=== PATIENT | male | born 1930 | race Caucasian/White ===

== ENCOUNTER 2016-11-21 11:33 | Inpatient (IN) | payer MEDICARE, OTHER ==
[~2016-11-21] VITALS: Ht 177.8 cm; Wt 73.5 kg
--- NOTE | 2016-11-21 11:56 | RAD ---
CT of the head without contrast, 11/21/2016: History: Left-sided weakness, altered mental status There is moderate cerebral atrophy. There are mild patchy lucencies in the deep white matter bilaterally compatible with chronic ischemic change. The ventricles are mildly enlarged on a compensatory basis. There is no shift of the midline structures. There is no evidence of acute intracranial hemorrhage or mass effect. IMPRESSION: 1. Cerebral atrophy. 2. Mild chronic ischemic change in the deep white matter bilaterally. 3. No acute intracranial abnormality is detected. Note: The findings were called to personnel in the [facility] ER at 11:50 AM on 11/21/2016. PQRS Compliance Statement: One or more of the following individualized dose reduction techniques were utilized for this examination: 1. Automated exposure control 2. Adjustment of the mA and/or kV according to patient size 3. Use of iterative reconstruction technique
[2016-11-21 12:45] LABS: BASO # 0.1 x10^3/uL (0.0-0.2); BASO % 1 % (0-3); EOS % 2 % (0-3); HEMATOCRIT 43.4 % (39.0-53.0); HEMOGLOBIN 14.3 g/dL (13.0-17.5); LYMPH # 2.6 x10^3/uL (1.0-4.8); LYMPH % 30 % (24-48); MEAN CORPUSCULAR HEMOGLOBIN 30 pg (25-35); MEAN CORPUSCULAR HGB CONC 33 g/dL (31-37); MEAN CORPUSCULAR VOLUME 89 fL (79-100); MONO % 9 % (0-9); NEUT % 58 % (31-73); PLATELET COUNT 577 x10^3/uL (140-400); RED BLOOD COUNT 4.86 x10^6/uL (4.30-5.70); RED CELL DISTRIBUTION WIDTH 14.6 % (11.5-14.5); WHITE BLOOD COUNT 8.5 x10^3/uL (4.0-11.0)
[2016-11-21] MEDS ORDERED: ASPIRIN ENTERIC COATED 325 MG TABLET.DR. PO ONE (12:45)
--- NOTE | 2016-11-21 12:53 | PHYS DOC ---
Past Medical History Past Medical History: Diabetes-Type II Alcohol Use: None Drug Use: None Adult General Chief Complaint Chief Complaint: NEURO SYMPTOMS/DEFICITS HPI HPI 86-year-old male presenting to the emergency department with worsening decline of his mental status over the past week. His symptoms include generalized weakness slurring of speech mental status decline. The halfway reports his last known normal was on Monday. This morning he did get worse and began developing worsening slurred speech at which point paramedics were called. Location brain. Duration intermittent. No alleviating factors present. Review of systems is negative for chest pain shortness of breath abdominal pain nausea vomiting fevers or chills. All other review of systems is negative unless otherwise noted in history of present illness. Review of Systems Review of Systems SEE ABOVE. Current Medications Current Medications Current Medications Medications (Trade) Dose Ordered Sig/Alka Start Time Stop Time Status Last Admin Dose Admin Aspirin (Ecotrin) 325 mg 1X ONCE 11/21/16 12:45 11/21/16 12:46 DC 11/21/16 12:35 325 MG Morphine Sulfate 2 mg PRN Q2HR PRN 11/21/16 13:15 11/22/16 13:14 Ondansetron HCl (Zofran) 4 mg PRN Q8HRS PRN 11/21/16 13:15 11/22/16 13:14 Allergies Allergies Allergies Coded Allergies Type Severity Reaction Last Updated Verified carbidopa Allergy Unknown 11/21/16 Yes codeine Allergy Unknown 11/21/16 Yes levodopa Allergy Unknown 11/21/16 Yes lisinopril Allergy Unknown 11/21/16 Yes Physical Exam Physical Exam Constitutional: Well developed, well nourished, no acute distress, non-toxic appearance. HENT: Normocephalic, atraumatic, bilateral external ears normal, oropharynx moist, no oral exudates, nose normal. [] Eyes: PERRLA, EOMI, conjunctiva normal, no discharge. [] Neck: Normal range of motion, no tenderness, supple, no stridor. Cardiovascular:Heart rate regular rhythm, no murmur [] Lungs & Thorax: Bilateral breath sounds clear to auscultation Abdomen: Bowel sounds normal, soft, no tenderness, no masses, no pulsatile masses. [] Skin: Warm, dry, no erythema, no rash. Back: No tenderness, no CVA tenderness. [] Extremities: No tenderness, no cyanosis, no clubbing, ROM intact, no edema. [] Neurologic: Mental status: Awake, opens eyes spontaneously, oriented to person and alert Cranial nerves: Extraocular movements intact, eyebrows diana bilaterally smile symmetric, uvula elevation, shoulder shrug intact, tongue protrusion normal DTRs: 2+ Sensation: equal and normal in all extremities Strength: 4 out of 5 strength in the right upper and lower extremity with drift. 5 out of 5 strength in the left upper extremity and lower extremity. Psychologic: Affect normal, judgement normal, mood normal. Current Patient Data Vital Signs Vital Signs Date Time Temp Pulse Resp B/P Pulse Ox O2 Delivery O2 Flow Rate FiO2 11/21/16 11:40 97.4 83 14 148/104 97 Room Air 97.4 Lab Values Laboratory Tests Test 11/21/16 12:17 11/21/16 12:30 11/21/16 12:55 Glucose (Fingerstick) 166mg/dL (70-99) H White Blood Count 8.5x10^3/uL (4.0-11.0) Red Blood Count 4.86x10^6/uL (4.30-5.70) Hemoglobin 14.3g/dL (13.0-17.5) Hematocrit 43.4% (39.0-53.0) Mean Corpuscular Volume 89fL (79-100) Mean Corpuscular Hemoglobin 30pg (25-35) Mean Corpuscular Hemoglobin Concent 33g/dL (31-37) Red Cell Distribution Width 14.6% (11.5-14.5) H Platelet Count 577x10^3/uL (140-400) H Neutrophils (%) (Auto) 58% (31-73) Lymphocytes (%) (Auto) 30% (24-48) Monocytes (%) (Auto) 9% (0-9) Eosinophils (%) (Auto) 2% (0-3) Basophils (%) (Auto) 1% (0-3) Neutrophils # (Auto) 4.9x10^3uL (1.8-7.7) Lymphocytes # (Auto) 2.6x10^3/uL (1.0-4.8) Monocytes # (Auto) 0.8x10^3/uL (0.0-1.1) Eosinophils # (Auto) 0.1x10^3/uL (0.0-0.7) Basophils # (Auto) 0.1x10^3/uL (0.0-0.2) Prothrombin Time 24.3SEC (11.7-14.0) H Prothrombin Time INR 2.3 (0.8-1.1) H PTT 34SEC (24-38) Sodium Level 143mmol/L (136-145) Potassium Level 4.5mmol/L (3.5-5.1) Chloride Level 105mmol/L (98-107) Carbon Dioxide Level 30mmol/L (21-32) Anion Gap 8 (6-14) Blood Urea Nitrogen 19mg/dL (8-26) Creatinine 0.9mg/dL (0.7-1.3) Estimated GFR (Cockcroft-Gault) 80.4 Glucose Level 142mg/dL (70-99) H Calcium Level 11.0mg/dL (8.5-10.1) H Total Bilirubin 0.4mg/dL (0.2-1.0) Direct Bilirubin 0.2mg/dL (0.0-0.2) Aspartate Amino Transferase (AST) 18U/L (15-37) Alanine Aminotransferase (ALT) 21U/L (16-63) Alkaline Phosphatase 83U/L (46-116) Troponin I Quantitative < 0.017ng/mL (0.000-0.055) Total Protein 7.0g/dL (6.4-8.2) Albumin 3.5g/dL (3.4-5.0) Urine Collection Type Unknown Urine Color Yellow Urine Clarity Clear Urine pH 5.5 Urine Specific [place] 1.025 Urine Protein Negativemg/dL (NEG-TRACE) Urine Glucose (UA) Negativemg/dL (NEG) Urine Ketones (Stick) 15mg/dL (NEG) Urine Blood Negative (NEG) Urine Nitrite Negative (NEG) Urine Bilirubin Small (NEG) Urine Urobilinogen Dipstick 1.0mg/dL (0.2 mg/dL) Urine Leukocyte Esterase Negative (NEG) Urine RBC Occ/HPF (0-2) Urine WBC Occ/HPF (0-4) Urine Bacteria 0/HPF (0-FEW) Urine Hyaline Casts Few/HPF Urine Mucus Marked/LPF Urine Opiates Screen Neg (NEG) Urine Methadone Screen Neg (NEG) Urine Barbiturates Neg (NEG) Urine Phencyclidine Screen Neg (NEG) Urine Amphetamine/Methamphetamine Neg (NEG) Urine Benzodiazepines Screen Neg (NEG) Urine Cocaine Screen Neg (NEG) Urine Cannabinoids Screen Neg (NEG) Urine Ethyl Alcohol Neg (NEG) Laboratory Tests 11/21/16 12:30 Laboratory Tests 11/21/16 12:30 EKG EKG [] Radiology/Procedures Radiology/Procedures [] Course & Med Decision Making Course & Med Decision Making Pertinent Labs and Imaging studies reviewed. (See chart for details) [] 86-year-old male presenting to the emergency department with strokelike symptoms. His last known normal was on Monday and he has been progressively declining with slurred speech and worsening right-sided weakness. Patient was outside of the TPA window. In addition to this the patient's INR is too high. Given the patient's slurred speech and weakness of the right upper and lower extremity the patient was admitted for neurology consultation and MRI. Dragon Disclaimer Dragon Disclaimer This electronic medical record was generated, in whole or in part, using a voice recognition dictation system. Departure Departure Impression: Primary Impression: Slurred speech Additional Impression: Right sided weakness Disposition: ADMITTED INPATIENT Admitting Physician: Yanna Diez Condition: STABLE Referrals: MIRIAM BRAUN MD (PCP) Problem Qualifiers DIETER MARROQUIN MD Nov 21, 2016 12:53
[2016-11-21 12:54] LABS: INR 2.3 (0.8-1.1); PROTHROMBIN TIME PATIENT 24.3 SEC (11.7-14.0)
[2016-11-21 12:56] LABS: CREATININE 0.9 mg/dL (0.7-1.3); GFR 80.4; POTASSIUM 4.5 mmol/L (3.5-5.1)
[2016-11-21 13:02] LABS: ALBUMIN 3.5 g/dL (3.4-5.0); DIRECT BILIRUBIN 0.2 mg/dL (0.0-0.2); TOTAL BILIRUBIN 0.4 mg/dL (0.2-1.0)
[2016-11-21 13:06] LABS: BILIRUBIN,URINE SMALL (NEG); GLUCOSE,URINE NEGATIVE (NEG); NITRITE,URINE NEGATIVE (NEG); PH,URINE 5.5; PROTEIN,URINE NEGATIVE (NEG-TRACE)
[2016-11-21 13:11] LABS: BARBITURATES NEG (NEG); BENZODIAZEPINES NEG (NEG); CANNABINOIDS NEG (NEG); COCAINE NEG (NEG); METHADONE NEG (NEG); OPIATES NEG (NEG); PHENCYCLIDINE NEG (NEG)
[2016-11-21 13:13] LABS: ETHANOL, URINE NEG (NEG)
[2016-11-21] MEDS ORDERED: MORPHINE SULFATE 2 MG/ML DISP.SYRIN. IV PRN (13:15)
[2016-11-21] MEDS ORDERED: ONDANSETRON PF 4 MG/2 ML VIAL. IV PRN (13:15)
[2016-11-21 13:17] LABS: BACTERIA,URINE 0 /HPF (0-FEW); RBC,URINE OCC /HPF (0-2); WBC,URINE OCC /HPF (0-4)
--- NOTE | 2016-11-21 14:01 | ACF ---
Admission Forms Criteria NEUROLOGY GRG Clinical Indications for Admission to Inpatient Care (Place ' X' for any and all applicable criteria): Hospital admission is needed for appropriate care of the patient because of 1 or more of the following: [ ]I. Encephalitis [ ]II. Severe [employer] infections indicated by 1 or more of the following(1)(2)(3) : [ ]a) Intracranial abscess [ ]b) Spinal abscess or myelitis [ ]c) Tuberculous or other nonbacterial, nonviral [employer] infection(8) [ ]III. Vasculitis and 1 or more of the following(14)(15): []a) Altered mental status that is severe or persistent or other acute neurologic change []b) Psychosis []c) Seizure [ ]IV. Status epilepticus or repetitive seizures not controlled with emergent treatment [A] (7)(8) [ ]V. Altered mental status that is severe or persistent [ ]. Transient alteration in consciousness with high-risk etiology; examples include (12)(13): [ ]a) Cardiovascular source [ ]b) Cataplexy [ ]VII. Cerebral aneurysm requiring ANY ONE of the following(14): [ ]a) IV antihypertensives or vasoactive agents [ ]b) Sedation and analgesia for suspected leak [ ]c) Need for external ventricular drainage and cerebral perfusion pressure monitoring [ ]d) Emergent evaluation to determine need for surgical clipping or endovascular coiling by interventional radiology. If surgery is required ( Also use Craniotomy, Supratentorial, for Surgery of Bleeding Intracranial Aneurysm (for bleeding aneurysm) or Craniotomy, Supratentorial (for nonbleeding aneurysm) as appropriate. [X]VIII. New-onset severe neurologic symptom requiring inpatient care indicated by ANY ONE of the following: [ ]a) Aphasia(15) [ ]b) Weakness (grade 3 or less) [ ]c) Paralysis (eg, hemiplegia) [ ]d) Spasticity(16) [ ]e) Dystonia [ ]e) Ataxia(17) [ ]f) Amnesia(18) [ ]g) Involuntary movements(19) [ ]h) Vertigo [ ] Visual loss [X]i) Other severe neurologic finding (eg, papilledema, mass effect on imaging, myoclonus not treatable at alternative level of care (eg, observation care) [ ]IX. Guillain-[place] syndrome(20) [ ]X. Myasthenia gravis crisis or inpatient monitoring need as indicated by 1 or more of the following(21): [ ]a) Intensive treatment (eg, course of plasmapheresis) with inadequate outpatient situation to monitor patients status [ ]b) Inadequate airway protection [ ]c) Respiratory insufficiency requiring intubation or inpatient. monitoring [ ]d) Progressive dysphagia with failure to thrive [ ]XI. Multiple sclerosis or other acute demyelinating disease requiring inpatient care as indicated by 1 or more of the following (22)(23): [ ]a) Acute severe deterioration requiring inpatient treatment (eg, IV steroids, plasmapheresis, close observation) [ ]b) Acute complication requiring inpatient care (eg, sepsis, severe decubitus, aspiration) [ ]XII.Parkinson disease requiring inpatient care (Also use Optimal Recovery Care Criteria or General Recovery Criteria as appropriate) indicated by 1 or more of the following(25): [ ]a) Infection (eg, aspiration pneumonia) not treatable at alternative level of care [ ]b Dehydration that is severe or persistent [ ]c) Life-threatening agitation or psychotic behavior not treatable on emergency, observation care, or alternative level (eg, residential) basis [ ]d) Severe medication withdrawal effects (eg, freezing, neuroleptic malignant syndrome) not responsive to emergency and observation care treatment ( as appropriate) [ ]e) Other severe manifestation not treatable at alternative level of care [ ]XII. Amyotrophic lateral sclerosis with inpatient care needs as indicated by ANY ONE of the following(26): [ ]a) Acute complications (eg, aspiration pneumonia, sepsis ) requiring inpatient care ( see other optimal Recovery Guideline as appropriate) [ ]b) Dehydration that is severe persistent AND artificial support desired [ ]c) Inadequate airway protection AND artificial support desired [ ]d) Severe ventilatory insufficiency AND artificial support desired [ ]XIII. Myasthenia gravis crisis or inpatient monitoring need as indicated by 1 or more of the following(21): [] a) Inadequate airway protection []b) Respiratory insufficiency requiring intubation or inpatient monitoring []c) Progressive dysphagia with failure to thrive []d) Intensive treatment (e.g., course of plasmapheresis) with inadequate outpatient situation to monitor patients status [ ]XIV. Multiple sclerosis or other acute demyelinating disease requiring inpatient care indicated by 1 or more of the following[C](36)(43)(44)(45)(46): []a) Acute severe deterioration requiring inpatient treatment (eg, IV steroids, plasmapheresis, close observation) []b) Acute complication requiring inpatient care (eg, sepsis, severe decubitus, aspiration) [ ]XV. Intracranial hypertension (e.g., pseudotumor cerebri) requiring inpatient care (e.g., acute visual loss, inadequate oral intake) (47)(48)(49) [ ]XVI. Parkinson disease requiring inpatient care (Also use Optimal Recovery Care Criteria or General Recovery Criteria as appropriate) indicated by 1 or more of the following(25): [] a) Infection (e.g., aspiration pneumonia) not treatable at alternative level of care []b) Volume depletion not responsive to emergency and observation care treatment (as appropriate) []c) Life-threatening agitation or psychotic behavior not treatable on emergency, observation care, or alternative level (e.g., residential) basis []d) Severe medication withdrawal effects (e.g., freezing, neuroleptic malignant syndrome) not responsive to emergency and observation care treatment (as appropriate) []e) Other severe manifestation not treatable at alternative level of care [ ]XVII. Amyotrophic lateral sclerosis with inpatient care needs as indicated by1 or more of the following(42): []a) Acute complications (eg, aspiration pneumonia, sepsis) requiring inpatient care (see other Optimal Recovery Guideline or General Recovery Guideline as appropriate) []b) Dehydration that is severe or persistent AND artificial support desired []c) Inadequate airway protection AND artificial support desired []d) Severe ventilatory insufficiency AND artificial support desired [ ]XVIII. Severe myopathy, neuropathy, or other neuromuscular disease indicated by 1 or more of the following(42)(52)(53)(54): []a ) New-onset severe diffuse weakness (eg, strength 3/5 or less) []b) Severe dysphagia []c) Dyspnea at rest or with minimal exertion (new) []d) Inadequate airway protection []e) Inadequate ventilation indicated by 1 or more of the following : i) Partial pressure of carbon dioxide greater than 44 mm Hg ( 5.9 kPa) (new) ii) Reduced peak expiratory flow rate (new) iii) Vital capacity less than 50% of predicted (less than 15 mL/kg) iv) Peak inspiratory force less negative than -30 cm H2O (- 2942 Pa) [ ]XVII.Complications of congenital or degenerative disease (eg, infection, seizures, dehydration, injury) not responsive to emergency and observation care treatment (as appropriate ) [C](16)(29)(30) [ ]XVIII.Suspected or confirmed nerve or muscle toxic injury, including ANY ONE of the following: [ ]a) Rhabdomyolysis(31) i) Acute renal failure ii) Dehydration that is severe or persistent iii) Altered mental status that is severe or persistent iv) Electrolyte abnormality that remains after emergency or observation level care ( as appropriate) [ ]b) Botulism(32) [ ]c) Other severe toxin-induced sign or symptom [ ]XIX. Neurologic trauma requiring inpatient treatment (medical) indicated by ANY ONE of the following(33)(34): [ ]a) Vital signs or neurologic signs more frequently than every 4 hours [ ]b) Hyperosmolar therapy [ ]c) Respiratory monitoring [ ]d) Intracranial pressure monitoring and treatment [ ]e) Stabilization and immobilization device placement (eg, braces, body jacket) [ ]f) Intubation & mechanical ventilation for airway protection or therapeutic hyperventilation [ ]g) Other treatment or monitoring needed that requires inpatient level of care [ ]XX.Complications of neurologic devices (eg, ventricular shunt, neurostimulator) requiring 1 or more of the following(35)(36): [ ]a) IV antibiotics with monitoring while awaiting culture results [ ]b) Monitoring for hydrocephalus [ ]XXI. Neurology condition symptom, or finding for which emergency and observation care have failed or are not considered appropriate. See General Criteria: Observation Care ISC, General Admission Criteria GRG, or Pediatric General Admission Criteria GRG guideline as appropriate. The original [facility] [employer] content created by [facility] [employer] has been revised. The portions of the content which have been revised are identified through the use of italic text or in bold, and [facility] has neither reviewed nor approved the modified material. All other unmodified content is copyright [facility] Please see references footnoted in the original [facility] edition 2016 Admission Criteria Met?: Yes SUZANNE RAMÍREZ Nov 21, 2016 14:01
--- NOTE | 2016-11-21 15:03 | PDOC2 ---
NEUROLOGY CONSULT Date of Admission Date of Admission DATE: 11/21/16 TIME: 15:03 History of Present Illness History of Present Illness The patient is an 86-year-old right-handed male [facility] with 1 week of confusion and increased weakness. The last known normal was 3 days ago. Therefore he is not a candidate for tissue plasminogen activator. A power of traffic law attorney was here earlier, but not currently available. He denies any history of stroke, seizure, or head injury. I reviewed [place]'s records. He was admitted first on November 02 for weakness and falls. Dr. Huerta saw him. He recorded that the patient was also at [facility] in the middle of October with weakness and had extensive x-rays including a head CT. Head CT on 11/02 showed an old right frontal meningioma. Then he was admitted at [facility] last week with weakness and falls. Head and cervical spine CT showed no significant abnormality as reviewed below. Dr. Huerta also saw him then. There was comment one possibly obtaining an EMG but results are not in the chart. Past Medical History Cardiovascular: AFIB, HTN, Hyperlipidemia Pulmonary: COPD, Pulmonary embolus (DVT) Musculoskeletal: low back pain Endocrine: Diabetes Past Surgical History Past Surgical History: Pacemaker, Cataract Removal, Hernia Repair, Tonsillectomy, Other (cervical, lumbar 2, cardiac ablation) Family History Family History: CAD Social History Social History Currently in a [facility], had been with a significant other in his own home, non-smoker, nondrinker Current Medications Current Medications Current Medications Aspirin (Ecotrin) 325 mg 1X ONCE PO Last administered on 11/21/16t 12:35; Start 11/21/16 at 12:45; Stop 11/21/16 at 12:46; Status DC Ondansetron HCl (Zofran) 4 mg PRN Q8HRS PRN IV NAUSEA/VOMITING; Start 11/21/16 at 13:15; Stop 11/22/16 at 13:14 Morphine Sulfate 2 mg PRN Q2HR PRN IV PAIN; Start 11/21/16 at 13:15; Stop 11/22 at 13:14 Allergies Allergies: Coded Allergies: carbidopa (Verified Allergy, Unknown, 11/21/16) codeine (Verified Allergy, Unknown, 11/21/16) levodopa (Verified Allergy, Unknown, 11/21/16) lisinopril (Verified Allergy, Unknown, 11/21/16) ROS Review of System Patient denies fevers, chills, weight loss, dyspnea, angina, abdominal pain, change in bowels, or dysuria. 14 point review of systems is negative. Physical Exam Physical Examination PHYSICAL EXAMINATION: Vital signs: see above. General appearance is normal and in no acute distress. HEENT: Normocephalic and nontraumatic. Eyes, nose, ears, and throat are unremarkable. Neck is supple. No lymphadenopathy. No bruits are heard over the carotid artery. No crepitus. NEUROLOGICAL EXAMINATION: Mental Status Examination: Alert. Oriented to person, does not know date or location. Answers questions and follows commends. Pupils are equal round and reactive to light and accommodation. Extraocular movements are intact. Visual field exam shows no defect on the direct confrontation. No motor or sensory deficits on the facial exam. Uvula in the midline and the soft palate elevated symmetrically. No deviation of the tongue to any direction. Gross hearing is normal. Shoulder shrug normal. Muscle tone is normal. Muscle strength is 3/5 on right, 4/5 on left. Deep tendon reflexes are 1+ all around. Plantar reflex is with flexion response bilaterally. [id number] test performance is accurate. Alternative movements are accurate. Gait not tested. Sensory exam shows no deficits. No cerebellar signs are elicited. Vitals VITALS Vital Signs Date Time Temp Pulse Resp B/P Pulse Ox O2 Delivery O2 Flow Rate FiO2 11/21/16 11:40 97.4 83 14 148/104 97 Room Air 97.4 Labs Labs Laboratory Tests Test 11/21/16 12:17 11/21/16 12:30 11/21/16 12:55 Glucose (Fingerstick) 166mg/dL (70-99) White Blood Count 8.5x10^3/uL (4.0-11.0) Red Blood Count 4.86x10^6/uL (4.30-5.70) Hemoglobin 14.3g/dL (13.0-17.5) Hematocrit 43.4% (39.0-53.0) Mean Corpuscular Volume 89fL (79-100) Mean Corpuscular Hemoglobin 30pg (25-35) Mean Corpuscular Hemoglobin Concent 33g/dL (31-37) Red Cell Distribution Width 14.6% (11.5-14.5) Platelet Count 577x10^3/uL (140-400) Neutrophils (%) (Auto) 58% (31-73) Lymphocytes (%) (Auto) 30% (24-48) Monocytes (%) (Auto) 9% (0-9) Eosinophils (%) (Auto) 2% (0-3) Basophils (%) (Auto) 1% (0-3) Neutrophils # (Auto) 4.9x10^3uL (1.8-7.7) Lymphocytes # (Auto) 2.6x10^3/uL (1.0-4.8) Monocytes # (Auto) 0.8x10^3/uL (0.0-1.1) Eosinophils # (Auto) 0.1x10^3/uL (0.0-0.7) Basophils # (Auto) 0.1x10^3/uL (0.0-0.2) Prothrombin Time 24.3SEC (11.7-14.0) Prothromb Time International Ratio 2.3 (0.8-1.1) Activated Partial Thromboplast Time 34SEC (24-38) Sodium Level 143mmol/L (136-145) Potassium Level 4.5mmol/L (3.5-5.1) Chloride Level 105mmol/L (98-107) Carbon Dioxide Level 30mmol/L (21-32) Anion Gap 8 (6-14) Blood Urea Nitrogen 19mg/dL (8-26) Creatinine 0.9mg/dL (0.7-1.3) Estimated GFR (Cockcroft-Gault) 80.4 Glucose Level 142mg/dL (70-99) Calcium Level 11.0mg/dL (8.5-10.1) Total Bilirubin 0.4mg/dL (0.2-1.0) Direct Bilirubin 0.2mg/dL (0.0-0.2) Aspartate Amino Transf (AST/SGOT) 18U/L (15-37) Alanine Aminotransferase (ALT/SGPT) 21U/L (16-63) Alkaline Phosphatase 83U/L (46-116) Troponin I Quantitative < 0.017ng/mL (0.000-0.055) Total Protein 7.0g/dL (6.4-8.2) Albumin 3.5g/dL (3.4-5.0) Urine Collection Type Unknown Urine Color Yellow Urine Clarity Clear Urine pH 5.5 Urine Specific [place] 1.025 Urine Protein Negativemg/dL (NEG-TRACE) Urine Glucose (UA) Negativemg/dL (NEG) Urine Ketones (Stick) 15mg/dL (NEG) Urine Blood Negative (NEG) Urine Nitrite Negative (NEG) Urine Bilirubin Small (NEG) Urine Urobilinogen Dipstick 1.0mg/dL (0.2 mg/dL) Urine Leukocyte Esterase Negative (NEG) Urine RBC Occ/HPF (0-2) Urine WBC Occ/HPF (0-4) Urine Bacteria 0/HPF (0-FEW) Urine Hyaline Casts Few/HPF Urine Mucus Marked/LPF Urine Opiates Screen Neg (NEG) Urine Methadone Screen Neg (NEG) Urine Barbiturates Neg (NEG) Urine Phencyclidine Screen Neg (NEG) Urine Amphetamine/Methamphetamine Neg (NEG) Urine Benzodiazepines Screen Neg (NEG) Urine Cocaine Screen Neg (NEG) Urine Cannabinoids Screen Neg (NEG) Urine Ethyl Alcohol Neg (NEG) Laboratory Tests Test 11/21/16 12:17 11/21/16 12:30 11/21/16 12:55 Glucose (Fingerstick) 166mg/dL (70-99) White Blood Count 8.5x10^3/uL (4.0-11.0) Red Blood Count 4.86x10^6/uL (4.30-5.70) Hemoglobin 14.3g/dL (13.0-17.5) Hematocrit 43.4% (39.0-53.0) Mean Corpuscular Volume 89fL (79-100) Mean Corpuscular Hemoglobin 30pg (25-35) Mean Corpuscular Hemoglobin Concent 33g/dL (31-37) Red Cell Distribution Width 14.6% (11.5-14.5) Platelet Count 577x10^3/uL (140-400) Neutrophils (%) (Auto) 58% (31-73) Lymphocytes (%) (Auto) 30% (24-48) Monocytes (%) (Auto) 9% (0-9) Eosinophils (%) (Auto) 2% (0-3) Basophils (%) (Auto) 1% (0-3) Neutrophils # (Auto) 4.9x10^3uL (1.8-7.7) Lymphocytes # (Auto) 2.6x10^3/uL (1.0-4.8) Monocytes # (Auto) 0.8x10^3/uL (0.0-1.1) Eosinophils # (Auto) 0.1x10^3/uL (0.0-0.7) Basophils # (Auto) 0.1x10^3/uL (0.0-0.2) Prothrombin Time 24.3SEC (11.7-14.0) Prothromb Time International Ratio 2.3 (0.8-1.1) Activated Partial Thromboplast Time 34SEC (24-38) Sodium Level 143mmol/L (136-145) Potassium Level 4.5mmol/L (3.5-5.1) Chloride Level 105mmol/L (98-107) Carbon Dioxide Level 30mmol/L (21-32) Anion Gap 8 (6-14) Blood Urea Nitrogen 19mg/dL (8-26) Creatinine 0.9mg/dL (0.7-1.3) Estimated GFR (Cockcroft-Gault) 80.4 Glucose Level 142mg/dL (70-99) Calcium Level 11.0mg/dL (8.5-10.1) Total Bilirubin 0.4mg/dL (0.2-1.0) Direct Bilirubin 0.2mg/dL (0.0-0.2) Aspartate Amino Transf (AST/SGOT) 18U/L (15-37) Alanine Aminotransferase (ALT/SGPT) 21U/L (16-63) Alkaline Phosphatase 83U/L (46-116) Troponin I Quantitative < 0.017ng/mL (0.000-0.055) Total Protein 7.0g/dL (6.4-8.2) Albumin 3.5g/dL (3.4-5.0) Urine Collection Type Unknown Urine Color Yellow Urine Clarity Clear Urine pH 5.5 Urine Specific [place] 1.025 Urine Protein Negativemg/dL (NEG-TRACE) Urine Glucose (UA) Negativemg/dL (NEG) Urine Ketones (Stick) 15mg/dL (NEG) Urine Blood Negative (NEG) Urine Nitrite Negative (NEG) Urine Bilirubin Small (NEG) Urine Urobilinogen Dipstick 1.0mg/dL (0.2 mg/dL) Urine Leukocyte Esterase Negative (NEG) Urine RBC Occ/HPF (0-2) Urine WBC Occ/HPF (0-4) Urine Bacteria 0/HPF (0-FEW) Urine Hyaline Casts Few/HPF Urine Mucus Marked/LPF Urine Opiates Screen Neg (NEG) Urine Methadone Screen Neg (NEG) Urine Barbiturates Neg (NEG) Urine Phencyclidine Screen Neg (NEG) Urine Amphetamine/Methamphetamine Neg (NEG) Urine Benzodiazepines Screen Neg (NEG) Urine Cocaine Screen Neg (NEG) Urine Cannabinoids Screen Neg (NEG) Urine Ethyl Alcohol Neg (NEG) Images Images CT head and cervical spine without contrast. 11/15 HISTORY Fall with head and neck pain. COMPARISON CT head and cervical spine without contrast November 08, 2011. TECHNIQUE Helical CT imaging of the brain and of the cervical spine is performed without IV contrast. PQRS: One or more the following individualized dose reduction techniques were utilized for the study: 1. Automated exposure control. 2. Adjustment of the mA and/or kV according to patient size. 3. Use of iterative reconstruction technique. FINDINGS No acute calvarial fracture. Visualized globes and orbits are intact. Paranasal sinuses and mastoid air cells are clear. No midline shift or mass effect. No extra-axial fluid collection or intraparenchymal hemorrhage. Hdez-white matter differentiation is preserved. Basilar cisterns are patent. The ventricles and sulci are prominent, consistent with age-related cerebral atrophy. There is periventricular white matter hypoattenuation, nonspecific but commonly due to chronic small vessel ischemic disease in a patient of this age. No acute fracture or subluxation of the cervical spine. Hypertrophic facets are intact. There is severe disc space narrowing and endplate spurring and sclerosis of C4/C5 and C5/C6. 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 The facet joints are not fused. There is minimal grade 1 anterolisthesis of C7 on T1. There is minimal grade 1 retrolisthesis of C4 on C5. Neural foraminal narrowing bilaterally at C4/C5 and C5/C6 may be severe. There are small opacities in both external auditory canals. Visualized lung apices are clear. Soft tissues of the neck unremarkable. IMPRESSION No acute intracranial abnormality. No acute fracture or subluxation of the cervical spine. Head CT Assessment/Plan Assessment/Plan Impression: Acute change is right hemiparesis, probably due to a small left hemispheric stroke, may be even lacunar as I find no aphasia or sensory loss. Failure to thrive over the past month with frequent falls, degenerative changes in the lumbar and cervical spines Right frontal meningioma, stable on serial imaging studies over the past month Evidence of dementia Recommendations: Rehabilitation modalities Repeat head CT in 2 days Echocardiogram Carotid Dopplers Additional laboratory studies. He was not a candidate for tissue plasminogen activator as he arrived far outside the window and he is also on anticoagulation Thank you for letting me help with the patient's care. SHAKA FORTUNE MD Nov 21, 2016 15:03
[2016-11-21 16:39] VITALS: BP 160/115
[2016-11-21 16:40] VITALS: BP 160/115
[2016-11-21] MEDS ORDERED: WARF5TAB7 PO (17:50)
[2016-11-21] MEDS: WARFARIN 2.5 MG TABLET. PO SCH (18:32)
[2016-11-21 19:30] VITALS: BP 125/83
[2016-11-21] MEDS ORDERED: POTA20TA82 PO (20:03)
[2016-11-21] MEDS ORDERED: ACET500T68 PO (20:03)
[2016-11-21] MEDS ORDERED: PROP150T2 PO (20:03)
[2016-11-21] MEDS ORDERED: ALBU2.5V5 NEB (20:03)
[2016-11-21] MEDS ORDERED: WARF2.5T71 PO (20:03)
[2016-11-21] MEDS ORDERED: ATOR20TA PO (20:03)
[2016-11-21] MEDS ORDERED: LIDO700A4 TP (20:03)
[2016-11-21] MEDS ORDERED: PANT40TA3 PO (20:03)
[2016-11-21] MEDS ORDERED: METF500T9 PO (20:03)
--- NOTE | 2016-11-21 20:31 | PDOC1 ---
History and Physical Date of Admission Date of Admission DATE: 11/21/16 TIME: 20:28 Identification/Chief Complaint Chief Complaint MS change Problems: Source Source: Chart review History of Present Illness History of Present Illness Mr. Munroe is a 86-year-old male admit for change in mental status. ONe week of change, w/ generalized weakness slurring of speech mental status decline. Was last normal 3 days ago. He lives at a NH, prior CVA, and had rehabbed to some benefit before. Pt seen and eval by Neuro Past Medical History Cardiovascular: AFIB, HTN, Hyperlipidemia Pulmonary: COPD, Pulmonary embolus (DVT) Musculoskeletal: low back pain Endocrine: Diabetes Past Surgical History Past Surgical History: Pacemaker, Cataract Removal, Hernia Repair, Tonsillectomy, Other (cervical, lumbar 2, cardiac ablation) Family History Family History: No Significant Social History Smoke: No ALCOHOL: none Drugs: None Current Problem List Problem List Problems Medical Problems: (1) Right sided weakness Status: Acute (2) Slurred speech Status: Acute Problems: Current Medications Current Medications Current Medications Aspirin (Ecotrin) 325 mg 1X ONCE PO Last administered on 11/21/16 12:35; Start 11/21/16 at 12:45; Stop 11/21/16 at 12:46; Status DC Ondansetron HCl (Zofran) 4 mg PRN Q8HRS PRN IV NAUSEA/VOMITING; Start 11/21/16 at 13:15; Stop 11/22/16 at 13:14 Morphine Sulfate 2 mg PRN Q2HR PRN IV PAIN; Start 11/21/16 at 13:15; Stop 11/22 at 13:14 Warfarin Sodium (Coumadin Per Pharmacy) 1 each PRN DAILY PRN [facility] SEE COMMENTS Last administered on 11/21/16 18:02; Start 11/21/16 at 15:30 Warfarin Sodium (Coumadin) 2.5 mg DAILY16 PO Last administered on 11/21/16 18: 32; Start 11/21/16 at 18:00 Active Scripts Active Reported Warfarin Sodium 2.5 Mg Tablet 2.5 Mg PO DAILY Protonix (Pantoprazole Sodium) 40 Mg Tablet.dr 40 Mg PO DAILY Propafenone Hcl 150 Mg Tablet 150 Mg PO BID Potassium Chloride 20 Meq Tablet.er 20 Meq PO BID Metformin Hcl Er (Metformin Hcl) 500 Mg Tab.er.24h 500 Mg PO BIDWMEALS Lipitor (Atorvastatin Calcium) 20 Mg Tablet 20 Mg PO HS Lidoderm (Lidocaine) 700 Mg Adh..patch 1 Patch TP DAILY Albuterol Sulfate Neb Soln (Albuterol Sulfate) 2.5 Mg/3 Ml Vial.neb 2.5 Mg NEB PRN Q4HRS PRN Acetaminophen 500 Mg Tablet 1 Tab PO Q8HRS Allergies Allergies: Coded Allergies: carbidopa (Verified Allergy, Unknown, 11/21/16) codeine (Verified Allergy, Unknown, 11/21/16) levodopa (Verified Allergy, Unknown, 11/21/16) lisinopril (Verified Allergy, Unknown, 11/21/16) ROS Review of System unable to complete, pt not verbally coherent, word salad Physical Exam General: Alert, mild distress, Other HEENT: Atraumatic, EOMI Lungs: Normal air movement Heart: no murmurs Extremities: No clubbing, No edema, Normal pulses Neuro: Normal tone Psych/Mental Status: Other (confused) Vitals Vitals Vital Signs Date Time Temp Pulse Resp B/P Pulse Ox O2 Delivery O2 Flow Rate FiO2 11/21/16 16:40 98.5 95 18 160/115 96 Room Air 98.5 Labs Labs Laboratory Tests Test 11/21/16 12:17 11/21/16 12:30 11/21/16 12:55 11/21/16 16:51 Glucose (Fingerstick) 166mg/dL (70-99) 127mg/dL (70-99) White Blood Count 8.5x10^3/uL (4.0-11.0) Red Blood Count 4.86x10^6/uL (4.30-5.70) Hemoglobin 14.3g/dL (13.0-17.5) Hematocrit 43.4% (39.0-53.0) Mean Corpuscular Volume 89fL (79-100) Mean Corpuscular Hemoglobin 30pg (25-35) Mean Corpuscular Hemoglobin Concent 33g/dL (31-37) Red Cell Distribution Width 14.6% (11.5-14.5) Platelet Count 577x10^3/uL (140-400) Neutrophils (%) (Auto) 58% (31-73) Lymphocytes (%) (Auto) 30% (24-48) Monocytes (%) (Auto) 9% (0-9) Eosinophils (%) (Auto) 2% (0-3) Basophils (%) (Auto) 1% (0-3) Neutrophils # (Auto) 4.9x10^3uL (1.8-7.7) Lymphocytes # (Auto) 2.6x10^3/uL (1.0-4.8) Monocytes # (Auto) 0.8x10^3/uL (0.0-1.1) Eosinophils # (Auto) 0.1x10^3/uL (0.0-0.7) Basophils # (Auto) 0.1x10^3/uL (0.0-0.2) Prothrombin Time 24.3SEC (11.7-14.0) Prothromb Time International Ratio 2.3 (0.8-1.1) Activated Partial Thromboplast Time 34SEC (24-38) Sodium Level 143mmol/L (136-145) Potassium Level 4.5mmol/L (3.5-5.1) Chloride Level 105mmol/L (98-107) Carbon Dioxide Level 30mmol/L (21-32) Anion Gap 8 (6-14) Blood Urea Nitrogen 19mg/dL (8-26) Creatinine 0.9mg/dL (0.7-1.3) Estimated GFR (Cockcroft-Gault) 80.4 Glucose Level 142mg/dL (70-99) Calcium Level 11.0mg/dL (8.5-10.1) Total Bilirubin 0.4mg/dL (0.2-1.0) Direct Bilirubin 0.2mg/dL (0.0-0.2) Aspartate Amino Transf (AST/SGOT) 18U/L (15-37) Alanine Aminotransferase (ALT/SGPT) 21U/L (16-63) Alkaline Phosphatase 83U/L (46-116) Troponin I Quantitative < 0.017ng/mL (0.000-0.055) Total Protein 7.0g/dL (6.4-8.2) Albumin 3.5g/dL (3.4-5.0) Urine Collection Type Unknown Urine Color Yellow Urine Clarity Clear Urine pH 5.5 Urine Specific [place] 1.025 Urine Protein Negativemg/dL (NEG-TRACE) Urine Glucose (UA) Negativemg/dL (NEG) Urine Ketones (Stick) 15mg/dL (NEG) Urine Blood Negative (NEG) Urine Nitrite Negative (NEG) Urine Bilirubin Small (NEG) Urine Urobilinogen Dipstick 1.0mg/dL (0.2 mg/dL) Urine Leukocyte Esterase Negative (NEG) Urine RBC Occ/HPF (0-2) Urine WBC Occ/HPF (0-4) Urine Bacteria 0/HPF (0-FEW) Urine Hyaline Casts Few/HPF Urine Mucus Marked/LPF Urine Opiates Screen Neg (NEG) Urine Methadone Screen Neg (NEG) Urine Barbiturates Neg (NEG) Urine Phencyclidine Screen Neg (NEG) Urine Amphetamine/Methamphetamine Neg (NEG) Urine Benzodiazepines Screen Neg (NEG) Urine Cocaine Screen Neg (NEG) Urine Cannabinoids Screen Neg (NEG) Urine Ethyl Alcohol Neg (NEG) Laboratory Tests Test 11/21/16 12:17 11/21/16 12:30 11/21/16 12:55 11/21/16 16:51 Glucose (Fingerstick) 166mg/dL (70-99) 127mg/dL (70-99) White Blood Count 8.5x10^3/uL (4.0-11.0) Red Blood Count 4.86x10^6/uL (4.30-5.70) Hemoglobin 14.3g/dL (13.0-17.5) Hematocrit 43.4% (39.0-53.0) Mean Corpuscular Volume 89fL (79-100) Mean Corpuscular Hemoglobin 30pg (25-35) Mean Corpuscular Hemoglobin Concent 33g/dL (31-37) Red Cell Distribution Width 14.6% (11.5-14.5) Platelet Count 577x10^3/uL (140-400) Neutrophils (%) (Auto) 58% (31-73) Lymphocytes (%) (Auto) 30% (24-48) Monocytes (%) (Auto) 9% (0-9) Eosinophils (%) (Auto) 2% (0-3) Basophils (%) (Auto) 1% (0-3) Neutrophils # (Auto) 4.9x10^3uL (1.8-7.7) Lymphocytes # (Auto) 2.6x10^3/uL (1.0-4.8) Monocytes # (Auto) 0.8x10^3/uL (0.0-1.1) Eosinophils # (Auto) 0.1x10^3/uL (0.0-0.7) Basophils # (Auto) 0.1x10^3/uL (0.0-0.2) Prothrombin Time 24.3SEC (11.7-14.0) Prothromb Time International Ratio 2.3 (0.8-1.1) Activated Partial Thromboplast Time 34SEC (24-38) Sodium Level 143mmol/L (136-145) Potassium Level 4.5mmol/L (3.5-5.1) Chloride Level 105mmol/L (98-107) Carbon Dioxide Level 30mmol/L (21-32) Anion Gap 8 (6-14) Blood Urea Nitrogen 19mg/dL (8-26) Creatinine 0.9mg/dL (0.7-1.3) Estimated GFR (Cockcroft-Gault) 80.4 Glucose Level 142mg/dL (70-99) Calcium Level 11.0mg/dL (8.5-10.1) Total Bilirubin 0.4mg/dL (0.2-1.0) Direct Bilirubin 0.2mg/dL (0.0-0.2) Aspartate Amino Transf (AST/SGOT) 18U/L (15-37) Alanine Aminotransferase (ALT/SGPT) 21U/L (16-63) Alkaline Phosphatase 83U/L (46-116) Troponin I Quantitative < 0.017ng/mL (0.000-0.055) Total Protein 7.0g/dL (6.4-8.2) Albumin 3.5g/dL (3.4-5.0) Urine Collection Type Unknown Urine Color Yellow Urine Clarity Clear Urine pH 5.5 Urine Specific [place] 1.025 Urine Protein Negativemg/dL (NEG-TRACE) Urine Glucose (UA) Negativemg/dL (NEG) Urine Ketones (Stick) 15mg/dL (NEG) Urine Blood Negative (NEG) Urine Nitrite Negative (NEG) Urine Bilirubin Small (NEG) Urine Urobilinogen Dipstick 1.0mg/dL (0.2 mg/dL) Urine Leukocyte Esterase Negative (NEG) Urine RBC Occ/HPF (0-2) Urine WBC Occ/HPF (0-4) Urine Bacteria 0/HPF (0-FEW) Urine Hyaline Casts Few/HPF Urine Mucus Marked/LPF Urine Opiates Screen Neg (NEG) Urine Methadone Screen Neg (NEG) Urine Barbiturates Neg (NEG) Urine Phencyclidine Screen Neg (NEG) Urine Amphetamine/Methamphetamine Neg (NEG) Urine Benzodiazepines Screen Neg (NEG) Urine Cocaine Screen Neg (NEG) Urine Cannabinoids Screen Neg (NEG) Urine Ethyl Alcohol Neg (NEG) VTE Prophylaxis Ordered VTE Prophylaxis Devices: Yes VTE Pharmacological Prophylaxi: Yes (coumadin) Assessment/Plan Assessment/Plan 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
[2016-11-21] MEDS: IV DEXTROSE 5 %-0.45 % NACL 1,000 ML IV SCH (22:38)
[2016-11-21 23:25] VITALS: BP 128/77
[2016-11-22 03:25] VITALS: BP 115/69
[2016-11-22 04:51] LABS: BASO # 0.1 x10^3/uL (0.0-0.2); BASO % 1 % (0-3); EOS % 2 % (0-3); HEMATOCRIT 40.2 % (39.0-53.0); HEMOGLOBIN 13.6 g/dL (13.0-17.5); LYMPH % 33 % (24-48); MEAN CORPUSCULAR HEMOGLOBIN 29 pg (25-35); MEAN CORPUSCULAR HGB CONC 34 g/dL (31-37); MEAN CORPUSCULAR VOLUME 87 fL (79-100); MONO % 9 % (0-9); NEUT % 54 % (31-73); PLATELET COUNT 491 x10^3/uL (140-400); RED BLOOD COUNT 4.62 x10^6/uL (4.30-5.70); RED CELL DISTRIBUTION WIDTH 14.8 % (11.5-14.5); WHITE BLOOD COUNT 9.1 x10^3/uL (4.0-11.0)
[2016-11-22 05:05] LABS: INR 2.4 (0.8-1.1); PROTHROMBIN TIME PATIENT 24.9 SEC (11.7-14.0)
[2016-11-22 05:17] LABS: ALBUMIN 3.2 g/dL (3.4-5.0); CALCIUM 10.6 mg/dL (8.5-10.1); CREATININE 0.8 mg/dL (0.7-1.3); GFR 92.1; POTASSIUM 3.9 mmol/L (3.5-5.1); TOTAL BILIRUBIN 0.5 mg/dL (0.2-1.0); TOTAL PROTEIN 6.3 g/dL (6.4-8.2)
[2016-11-22 07:00] VITALS: BP 122/74
--- NOTE | 2016-11-22 07:39 | RAD ---
Carotid ultrasound, 11/21/2016: History: CVA Duplex evaluation of the carotid arteries in the neck was performed including grayscale, color-flow and spectral Doppler analysis. There mild intimal thickening and smooth plaquing at the carotid bifurcations. The Doppler data obtained from the bifurcations reveals no significant focal velocity elevation to suggest a hemodynamically significant stenosis. The peak systolic velocity in the right internal carotid artery is 68 cm/s, and on the left is 56 cm/s. Antegrade flow is present in both vertebral arteries in the neck. IMPRESSION: Mild smooth plaquing at both carotid bifurcations with underlying luminal narrowing in the 0-50% diameter range bilaterally. Note: Stenosis calculations for CT, MRA and conventional angiography are based upon determination of the distal ICA diameter in accordance with the NASCET methodology. Stenosis calculations for Doppler studies are derived from validated velocity criteria which are known to correlate with NASCET methodology of determining stenosis.
--- NOTE | 2016-11-22 08:17 | EKG ---
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
[2016-11-22 08:45] LABS: FOLATE 19.41 ng/ml (3.2-20.0)
[2016-11-22] MEDS ORDERED: ONDANSETRON PF 4 MG/2 ML VIAL. IV PRN (09:42)
[2016-11-22 11:00] VITALS: BP 143/91
--- NOTE | 2016-11-22 11:30 | PDOC ---
PROGRESS NOTES Assessment Problems Medical Problems: (1) Right sided weakness Status: Acute (2) Slurred speech Status: Acute Acute change is right hemiparesis, probably due to a small left hemispheric stroke, may be even lacunar as I find no aphasia or sensory loss.However on today's exam, he does not have focal findings Failure to thrive over the past month with frequent falls, degenerative changes in the lumbar and cervical spines Right frontal meningioma, stable on serial imaging studies over the past month Plan Rehabilitation modalities Repeat head CT tomorrow (pacemaker, can't have MRI) Await echocardiogram Await additional laboratory studies. Subjective No complaints Objective Vital Signs Date Time Temp Pulse Resp B/P Pulse Ox O2 Delivery O2 Flow Rate FiO2 11/22/16 11:00 97.9 95 20 143/91 95 Room Air 97.9 Intake and Output 11/22/16 07:00 Intake Total 0 ml Balance 0 ml Intake Oral 0 ml # Voids 4 PHYSICAL EXAM Alert. Oriented to person, thinks he is at [facility]. PERRL. EOMI. CN: no focal findings. Muscle tone: normal. Muscle strength: 3-4/5, no focality DTR: 1+ Plantar reflex:flexor Gait: not examined in bed. Sensory exam: no abnormal findings. No cerebellar signs elicited. Review of Relevant I have reviewed the following items markel (where applicable) has been applied. Labs Laboratory Tests Test 11/21/16 12:17 11/21/16 12:30 11/21/16 12:55 11/21/16 16:30 Glucose (Fingerstick) 166mg/dL (70-99) White Blood Count 8.5x10^3/uL (4.0-11.0) Red Blood Count 4.86x10^6/uL (4.30-5.70) Hemoglobin 14.3g/dL (13.0-17.5) Hematocrit 43.4% (39.0-53.0) Mean Corpuscular Volume 89fL (79-100) Mean Corpuscular Hemoglobin 30pg (25-35) Mean Corpuscular Hemoglobin Concent 33g/dL (31-37) Red Cell Distribution Width 14.6% (11.5-14.5) Platelet Count 577x10^3/uL (140-400) Neutrophils (%) (Auto) 58% (31-73) Lymphocytes (%) (Auto) 30% (24-48) Monocytes (%) (Auto) 9% (0-9) Eosinophils (%) (Auto) 2% (0-3) Basophils (%) (Auto) 1% (0-3) Neutrophils # (Auto) 4.9x10^3uL (1.8-7.7) Lymphocytes # (Auto) 2.6x10^3/uL (1.0-4.8) Monocytes # (Auto) 0.8x10^3/uL (0.0-1.1) Eosinophils # (Auto) 0.1x10^3/uL (0.0-0.7) Basophils # (Auto) 0.1x10^3/uL (0.0-0.2) Prothrombin Time 24.3SEC (11.7-14.0) Prothromb Time International Ratio 2.3 (0.8-1.1) Activated Partial Thromboplast Time 34SEC (24-38) Sodium Level 143mmol/L (136-145) Potassium Level 4.5mmol/L (3.5-5.1) Chloride Level 105mmol/L (98-107) Carbon Dioxide Level 30mmol/L (21-32) Anion Gap 8 (6-14) Blood Urea Nitrogen 19mg/dL (8-26) Creatinine 0.9mg/dL (0.7-1.3) Estimated GFR (Cockcroft-Gault) 80.4 Glucose Level 142mg/dL (70-99) Calcium Level 11.0mg/dL (8.5-10.1) Total Bilirubin 0.4mg/dL (0.2-1.0) Direct Bilirubin 0.2mg/dL (0.0-0.2) Aspartate Amino Transf (AST/SGOT) 18U/L (15-37) Alanine Aminotransferase (ALT/SGPT) 21U/L (16-63) Alkaline Phosphatase 83U/L (46-116) Troponin I Quantitative < 0.017ng/mL (0.000-0.055) Total Protein 7.0g/dL (6.4-8.2) Albumin 3.5g/dL (3.4-5.0) Urine Collection Type Unknown Urine Color Yellow Urine Clarity Clear Urine pH 5.5 Urine Specific [place] 1.025 Urine Protein Negativemg/dL (NEG-TRACE) Urine Glucose (UA) Negativemg/dL (NEG) Urine Ketones (Stick) 15mg/dL (NEG) Urine Blood Negative (NEG) Urine Nitrite Negative (NEG) Urine Bilirubin Small (NEG) Urine Urobilinogen Dipstick 1.0mg/dL (0.2 mg/dL) Urine Leukocyte Esterase Negative (NEG) Urine RBC Occ/HPF (0-2) Urine WBC Occ/HPF (0-4) Urine Bacteria 0/HPF (0-FEW) Urine Hyaline Casts Few/HPF Urine Mucus Marked/LPF Urine Opiates Screen Neg (NEG) Urine Methadone Screen Neg (NEG) Urine Barbiturates Neg (NEG) Urine Phencyclidine Screen Neg (NEG) Urine Amphetamine/Methamphetamine Neg (NEG) Urine Benzodiazepines Screen Neg (NEG) Urine Cocaine Screen Neg (NEG) Urine Cannabinoids Screen Neg (NEG) Urine Ethyl Alcohol Neg (NEG) Nasal Screen MRSA (PCR) Negative (Negative) Test 11/21/16 16:51 11/21/16 20:47 11/22/16 04:30 11/22/16 07:19 Glucose (Fingerstick) 127mg/dL (70-99) 122mg/dL (70-99) 158mg/dL (70-99) White Blood Count 9.1x10^3/uL (4.0-11.0) Red Blood Count 4.62x10^6/uL (4.30-5.70) Hemoglobin 13.6g/dL (13.0-17.5) Hematocrit 40.2% (39.0-53.0) Mean Corpuscular Volume 87fL (79-100) Mean Corpuscular Hemoglobin 29pg (25-35) Mean Corpuscular Hemoglobin Concent 34g/dL (31-37) Red Cell Distribution Width 14.8% (11.5-14.5) Platelet Count 491x10^3/uL (140-400) Neutrophils (%) (Auto) 54% (31-73) Lymphocytes (%) (Auto) 33% (24-48) Monocytes (%) (Auto) 9% (0-9) Eosinophils (%) (Auto) 2% (0-3) Basophils (%) (Auto) 1% (0-3) Neutrophils # (Auto) 5.0x10^3uL (1.8-7.7) Lymphocytes # (Auto) 3.0x10^3/uL (1.0-4.8) Monocytes # (Auto) 0.8x10^3/uL (0.0-1.1) Eosinophils # (Auto) 0.2x10^3/uL (0.0-0.7) Basophils # (Auto) 0.1x10^3/uL (0.0-0.2) Erythrocyte Sedimentation Rate 32 (0-15) Prothrombin Time 24.9SEC (11.7-14.0) Prothromb Time International Ratio 2.4 (0.8-1.1) Sodium Level 140mmol/L (136-145) Potassium Level 3.9mmol/L (3.5-5.1) Chloride Level 106mmol/L (98-107) Carbon Dioxide Level 26mmol/L (21-32) Anion Gap 8 (6-14) Blood Urea Nitrogen 21mg/dL (8-26) Creatinine 0.8mg/dL (0.7-1.3) Estimated GFR (Cockcroft-Gault) 92.1 BUN/Creatinine Ratio 26 (6-20) Glucose Level 158mg/dL (70-99) Calcium Level 10.6mg/dL (8.5-10.1) Total Bilirubin 0.5mg/dL (0.2-1.0) Aspartate Amino Transf (AST/SGOT) 19U/L (15-37) Alanine Aminotransferase (ALT/SGPT) 19U/L (16-63) Alkaline Phosphatase 74U/L (46-116) Total Protein 6.3g/dL (6.4-8.2) Albumin 3.2g/dL (3.4-5.0) Albumin/Globulin Ratio 1.0 (1.0-1.7) Vitamin B12 Level 347pg/mL (247-911) Serum Folate 19.41ng/ml (3.2-20.0) Thyroid Stimulating Hormone (TSH) 1.111uIU/mL (0.358-3.74) Laboratory Tests Test 11/21/16 12:17 11/21/16 12:30 11/21/16 12:55 11/21/16 16:30 Glucose (Fingerstick) 166mg/dL (70-99) White Blood Count 8.5x10^3/uL (4.0-11.0) Red Blood Count 4.86x10^6/uL (4.30-5.70) Hemoglobin 14.3g/dL (13.0-17.5) Hematocrit 43.4% (39.0-53.0) Mean Corpuscular Volume 89fL (79-100) Mean Corpuscular Hemoglobin 30pg (25-35) Mean Corpuscular Hemoglobin Concent 33g/dL (31-37) Red Cell Distribution Width 14.6% (11.5-14.5) Platelet Count 577x10^3/uL (140-400) Neutrophils (%) (Auto) 58% (31-73) Lymphocytes (%) (Auto) 30% (24-48) Monocytes (%) (Auto) 9% (0-9) Eosinophils (%) (Auto) 2% (0-3) Basophils (%) (Auto) 1% (0-3) Neutrophils # (Auto) 4.9x10^3uL (1.8-7.7) Lymphocytes # (Auto) 2.6x10^3/uL (1.0-4.8) Monocytes # (Auto) 0.8x10^3/uL (0.0-1.1) Eosinophils # (Auto) 0.1x10^3/uL (0.0-0.7) Basophils # (Auto) 0.1x10^3/uL (0.0-0.2) Prothrombin Time 24.3SEC (11.7-14.0) Prothromb Time International Ratio 2.3 (0.8-1.1) Activated Partial Thromboplast Time 34SEC (24-38) Sodium Level 143mmol/L (136-145) Potassium Level 4.5mmol/L (3.5-5.1) Chloride Level 105mmol/L (98-107) Carbon Dioxide Level 30mmol/L (21-32) Anion Gap 8 (6-14) Blood Urea Nitrogen 19mg/dL (8-26) Creatinine 0.9mg/dL (0.7-1.3) Estimated GFR (Cockcroft-Gault) 80.4 Glucose Level 142mg/dL (70-99) Calcium Level 11.0mg/dL (8.5-10.1) Total Bilirubin 0.4mg/dL (0.2-1.0) Direct Bilirubin 0.2mg/dL (0.0-0.2) Aspartate Amino Transf (AST/SGOT) 18U/L (15-37) Alanine Aminotransferase (ALT/SGPT) 21U/L (16-63) Alkaline Phosphatase 83U/L (46-116) Troponin I Quantitative < 0.017ng/mL (0.000-0.055) Total Protein 7.0g/dL (6.4-8.2) Albumin 3.5g/dL (3.4-5.0) Urine Collection Type Unknown Urine Color Yellow Urine Clarity Clear Urine pH 5.5 Urine Specific [place] 1.025 Urine Protein Negativemg/dL (NEG-TRACE) Urine Glucose (UA) Negativemg/dL (NEG) Urine Ketones (Stick) 15mg/dL (NEG) Urine Blood Negative (NEG) Urine Nitrite Negative (NEG) Urine Bilirubin Small (NEG) Urine Urobilinogen Dipstick 1.0mg/dL (0.2 mg/dL) Urine Leukocyte Esterase Negative (NEG) Urine RBC Occ/HPF (0-2) Urine WBC Occ/HPF (0-4) Urine Bacteria 0/HPF (0-FEW) Urine Hyaline Casts Few/HPF Urine Mucus Marked/LPF Urine Opiates Screen Neg (NEG) Urine Methadone Screen Neg (NEG) Urine Barbiturates Neg (NEG) Urine Phencyclidine Screen Neg (NEG) Urine Amphetamine/Methamphetamine Neg (NEG) Urine Benzodiazepines Screen Neg (NEG) Urine Cocaine Screen Neg (NEG) Urine Cannabinoids Screen Neg (NEG) Urine Ethyl Alcohol Neg (NEG) Nasal Screen MRSA (PCR) Negative (Negative) Test 11/21/16 16:51 11/21/16 20:47 11/22/16 04:30 11/22/16 07:19 Glucose (Fingerstick) 127mg/dL (70-99) 122mg/dL (70-99) 158mg/dL (70-99) White Blood Count 9.1x10^3/uL (4.0-11.0) Red Blood Count 4.62x10^6/uL (4.30-5.70) Hemoglobin 13.6g/dL (13.0-17.5) Hematocrit 40.2% (39.0-53.0) Mean Corpuscular Volume 87fL (79-100) Mean Corpuscular Hemoglobin 29pg (25-35) Mean Corpuscular Hemoglobin Concent 34g/dL (31-37) Red Cell Distribution Width 14.8% (11.5-14.5) Platelet Count 491x10^3/uL (140-400) Neutrophils (%) (Auto) 54% (31-73) Lymphocytes (%) (Auto) 33% (24-48) Monocytes (%) (Auto) 9% (0-9) Eosinophils (%) (Auto) 2% (0-3) Basophils (%) (Auto) 1% (0-3) Neutrophils # (Auto) 5.0x10^3uL (1.8-7.7) Lymphocytes # (Auto) 3.0x10^3/uL (1.0-4.8) Monocytes # (Auto) 0.8x10^3/uL (0.0-1.1) Eosinophils # (Auto) 0.2x10^3/uL (0.0-0.7) Basophils # (Auto) 0.1x10^3/uL (0.0-0.2) Erythrocyte Sedimentation Rate 32 (0-15) Prothrombin Time 24.9SEC (11.7-14.0) Prothromb Time International Ratio 2.4 (0.8-1.1) Sodium Level 140mmol/L (136-145) Potassium Level 3.9mmol/L (3.5-5.1) Chloride Level 106mmol/L (98-107) Carbon Dioxide Level 26mmol/L (21-32) Anion Gap 8 (6-14) Blood Urea Nitrogen 21mg/dL (8-26) Creatinine 0.8mg/dL (0.7-1.3) Estimated GFR (Cockcroft-Gault) 92.1 BUN/Creatinine Ratio 26 (6-20) Glucose Level 158mg/dL (70-99) Calcium Level 10.6mg/dL (8.5-10.1) Total Bilirubin 0.5mg/dL (0.2-1.0) Aspartate Amino Transf (AST/SGOT) 19U/L (15-37) Alanine Aminotransferase (ALT/SGPT) 19U/L (16-63) Alkaline Phosphatase 74U/L (46-116) Total Protein 6.3g/dL (6.4-8.2) Albumin 3.2g/dL (3.4-5.0) Albumin/Globulin Ratio 1.0 (1.0-1.7) Vitamin B12 Level 347pg/mL (247-911) Serum Folate 19.41ng/ml (3.2-20.0) Thyroid Stimulating Hormone (TSH) 1.111uIU/mL (0.358-3.74) Medications Current Medications Aspirin (Ecotrin) 325 mg 1X ONCE PO Last administered on 11/21/16 12:35; Start 11/21/16 at 12:45; Stop 11/21/16 at 12:46; Status DC Ondansetron HCl (Zofran) 4 mg PRN Q8HRS PRN IV NAUSEA/VOMITING; Start 11/21/16 at 13:15; Stop 11/22/16 at 09:43; Status DC Morphine Sulfate 2 mg PRN Q2HR PRN IV PAIN; Start 11/21/16 at 13:15; Stop 11/22 at 13:14 Warfarin Sodium (Coumadin Per Pharmacy) 1 each PRN DAILY PRN MC SEE COMMENTS Last administered on 11/21/16 18:02; Start 11/21/16 at 15:30 Warfarin Sodium 2.5 mg 2.5 mg DAILY16 PO Last administered on 11/21/16 18:32; Start 11/21/16 at 18:00 Dextrose/Sodium Chloride (Iv D5% - 1/2 NS) 1,000 ml @ 100 mls/hr Q10H IV Last administered on 11/21/16 22:38; Start 11/21/16 at 23:00 Ondansetron HCl (Zofran) 4 mg PRN Q6HRS PRN IV NAUSEA/VOMITING; Start 11/22/16 at 09:42 Active Scripts Active Reported Warfarin Sodium 2.5 Mg Tablet 2.5 Mg PO DAILY Protonix (Pantoprazole Sodium) 40 Mg Tablet.dr 40 Mg PO DAILY Propafenone Hcl 150 Mg Tablet 150 Mg PO BID Potassium Chloride 20 Meq Tablet.er 20 Meq PO BID Metformin Hcl Er (Metformin Hcl) 500 Mg Tab.er.24h 500 Mg PO BIDWMEALS Lipitor (Atorvastatin Calcium) 20 Mg Tablet 20 Mg PO HS Lidoderm (Lidocaine) 700 Mg Adh..patch 1 Patch TP DAILY Albuterol Sulfate Neb Soln (Albuterol Sulfate) 2.5 Mg/3 Ml Vial.neb 2.5 Mg NEB PRN Q4HRS PRN Acetaminophen 500 Mg Tablet 1 Tab PO Q8HRS Vitals/I & O Vital Sign - Last 24 Hours 11/21/16 11/21/16 11/21/16 11/21/16 11:40 12:00 12:15 12:40 Temp 97.4 97.4 Pulse 83 82 80 82 Resp 14 14 14 16 B/P 148/104 140/90 152/86 168/101 Pulse Ox 97 96 95 97 O2 Delivery Room Air Room Air 11/21/16 11/21/16 11/21/16 11/21/16 12:45 13:00 13:30 14:00 Pulse 86 94 89 91 Resp 15 15 16 17 B/P 182/100 163/107 159/76 138/94 Pulse Ox 97 100 96 96 11/21/16 11/21/16 11/21/16 11/21/16 14:30 16:39 16:40 19:30 Temp 98.5 98.5 97.7 98.5 98.5 97.7 Pulse 91 95 95 91 Resp 18 18 18 B/P 144/82 160/115 160/115 125/83 Pulse Ox 96 96 96 96 O2 Delivery Room Air Room Air Room Air Room Air 11/21/16 11/21/16 11/22/16 11/22/16 20:00 23:25 03:25 07:00 Temp 97.5 97.5 97.8 97.5 97.5 97.8 Pulse 92 87 91 Resp 18 18 20 B/P 128/77 115/69 122/74 Pulse Ox 93 94 94 O2 Delivery Room Air Room Air Room Air Room Air 11/22/16 11/22/16 08:00 11:00 Temp 97.9 97.9 Pulse 95 Resp 20 B/P 143/91 Pulse Ox 95 O2 Delivery Room Air Room Air Intake and Output 11/21/16 11/21/16 11/22/16 15:00 23:00 07:00 Intake Total 0 ml 0 ml Balance 0 ml 0 ml Images Carotid Dopplers: Mild smooth plaquing at both carotid bifurcations with underlying luminal narrowing in the 0-50% diameter range bilaterally. SHAKA FORTUNE MD Nov 22, 2016 11:30
[2016-11-22] MEDS: IV DEXTROSE 5 %-0.45 % NACL 1,000 ML IV SCH ×2 (12:51→21:49)
--- NOTE | 2016-11-22 14:01 | PDOC ---
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 Resume lidoderm patch DVT prophy PPI iV while nPO SOme iVF maybe procalamine while nPO Dw RN Check xray R shoulder COnsult physiatry Vitals Vitals Vital Signs Date Time Temp Pulse Resp B/P Pulse Ox O2 Delivery O2 Flow Rate FiO2 11/22/16 11:00 97.9 95 20 143/91 95 Room Air 97.9 Physical Exam General: Alert, mild distress, Other Extremities: No clubbing, No edema, Normal pulses Labs LABS Laboratory Tests Test 11/21/16 16:30 11/21/16 16:51 11/21/16 20:47 11/22/16 04:30 Nasal Screen MRSA (PCR) Negative (Negative) Glucose (Fingerstick) 127mg/dL (70-99) 122mg/dL (70-99) White Blood Count 9.1x10^3/uL (4.0-11.0) Red Blood Count 4.62x10^6/uL (4.30-5.70) Hemoglobin 13.6g/dL (13.0-17.5) Hematocrit 40.2% (39.0-53.0) Mean Corpuscular Volume 87fL (79-100) Mean Corpuscular Hemoglobin 29pg (25-35) Mean Corpuscular Hemoglobin Concent 34g/dL (31-37) Red Cell Distribution Width 14.8% (11.5-14.5) Platelet Count 491x10^3/uL (140-400) Neutrophils (%) (Auto) 54% (31-73) Lymphocytes (%) (Auto) 33% (24-48) Monocytes (%) (Auto) 9% (0-9) Eosinophils (%) (Auto) 2% (0-3) Basophils (%) (Auto) 1% (0-3) Neutrophils # (Auto) 5.0x10^3uL (1.8-7.7) Lymphocytes # (Auto) 3.0x10^3/uL (1.0-4.8) Monocytes # (Auto) 0.8x10^3/uL (0.0-1.1) Eosinophils # (Auto) 0.2x10^3/uL (0.0-0.7) Basophils # (Auto) 0.1x10^3/uL (0.0-0.2) Erythrocyte Sedimentation Rate 32 (0-15) Prothrombin Time 24.9SEC (11.7-14.0) Prothromb Time International Ratio 2.4 (0.8-1.1) Sodium Level 140mmol/L (136-145) Potassium Level 3.9mmol/L (3.5-5.1) Chloride Level 106mmol/L (98-107) Carbon Dioxide Level 26mmol/L (21-32) Anion Gap 8 (6-14) Blood Urea Nitrogen 21mg/dL (8-26) Creatinine 0.8mg/dL (0.7-1.3) Estimated GFR (Cockcroft-Gault) 92.1 BUN/Creatinine Ratio 26 (6-20) Glucose Level 158mg/dL (70-99) Calcium Level 10.6mg/dL (8.5-10.1) Total Bilirubin 0.5mg/dL (0.2-1.0) Aspartate Amino Transf (AST/SGOT) 19U/L (15-37) Alanine Aminotransferase (ALT/SGPT) 19U/L (16-63) Alkaline Phosphatase 74U/L (46-116) Total Protein 6.3g/dL (6.4-8.2) Albumin 3.2g/dL (3.4-5.0) Albumin/Globulin Ratio 1.0 (1.0-1.7) Vitamin B12 Level 347pg/mL (247-911) Serum Folate 19.41ng/ml (3.2-20.0) Thyroid Stimulating Hormone (TSH) 1.111uIU/mL (0.358-3.74) Test 11/22/16 07:19 Glucose (Fingerstick) 158mg/dL (70-99) Review of Systems Review of Systems minimal ROS, in pain, dementia Assessment and Plan Assessmemt and Plan Problems Medical Problems: (1) Right sided weakness Status: Acute (2) Slurred speech Status: Acute Problems: Comment Review of Relevant I have reviewed the following items markel (where applicable) has been applied. Labs Laboratory Tests Test 11/21/16 12:17 11/21/16 12:30 11/21/16 12:55 11/21/16 16:30 Glucose (Fingerstick) 166mg/dL (70-99) White Blood Count 8.5x10^3/uL (4.0-11.0) Red Blood Count 4.86x10^6/uL (4.30-5.70) Hemoglobin 14.3g/dL (13.0-17.5) Hematocrit 43.4% (39.0-53.0) Mean Corpuscular Volume 89fL (79-100) Mean Corpuscular Hemoglobin 30pg (25-35) Mean Corpuscular Hemoglobin Concent 33g/dL (31-37) Red Cell Distribution Width 14.6% (11.5-14.5) Platelet Count 577x10^3/uL (140-400) Neutrophils (%) (Auto) 58% (31-73) Lymphocytes (%) (Auto) 30% (24-48) Monocytes (%) (Auto) 9% (0-9) Eosinophils (%) (Auto) 2% (0-3) Basophils (%) (Auto) 1% (0-3) Neutrophils # (Auto) 4.9x10^3uL (1.8-7.7) Lymphocytes # (Auto) 2.6x10^3/uL (1.0-4.8) Monocytes # (Auto) 0.8x10^3/uL (0.0-1.1) Eosinophils # (Auto) 0.1x10^3/uL (0.0-0.7) Basophils # (Auto) 0.1x10^3/uL (0.0-0.2) Prothrombin Time 24.3SEC (11.7-14.0) Prothromb Time International Ratio 2.3 (0.8-1.1) Activated Partial Thromboplast Time 34SEC (24-38) Sodium Level 143mmol/L (136-145) Potassium Level 4.5mmol/L (3.5-5.1) Chloride Level 105mmol/L (98-107) Carbon Dioxide Level 30mmol/L (21-32) Anion Gap 8 (6-14) Blood Urea Nitrogen 19mg/dL (8-26) Creatinine 0.9mg/dL (0.7-1.3) Estimated GFR (Cockcroft-Gault) 80.4 Glucose Level 142mg/dL (70-99) Calcium Level 11.0mg/dL (8.5-10.1) Total Bilirubin 0.4mg/dL (0.2-1.0) Direct Bilirubin 0.2mg/dL (0.0-0.2) Aspartate Amino Transf (AST/SGOT) 18U/L (15-37) Alanine Aminotransferase (ALT/SGPT) 21U/L (16-63) Alkaline Phosphatase 83U/L (46-116) Troponin I Quantitative < 0.017ng/mL (0.000-0.055) Total Protein 7.0g/dL (6.4-8.2) Albumin 3.5g/dL (3.4-5.0) Urine Collection Type Unknown Urine Color Yellow Urine Clarity Clear Urine pH 5.5 Urine Specific [place] 1.025 Urine Protein Negativemg/dL (NEG-TRACE) Urine Glucose (UA) Negativemg/dL (NEG) Urine Ketones (Stick) 15mg/dL (NEG) Urine Blood Negative (NEG) Urine Nitrite Negative (NEG) Urine Bilirubin Small (NEG) Urine Urobilinogen Dipstick 1.0mg/dL (0.2 mg/dL) Urine Leukocyte Esterase Negative (NEG) Urine RBC Occ/HPF (0-2) Urine WBC Occ/HPF (0-4) Urine Bacteria 0/HPF (0-FEW) Urine Hyaline Casts Few/HPF Urine Mucus Marked/LPF Urine Opiates Screen Neg (NEG) Urine Methadone Screen Neg (NEG) Urine Barbiturates Neg (NEG) Urine Phencyclidine Screen Neg (NEG) Urine Amphetamine/Methamphetamine Neg (NEG) Urine Benzodiazepines Screen Neg (NEG) Urine Cocaine Screen Neg (NEG) Urine Cannabinoids Screen Neg (NEG) Urine Ethyl Alcohol Neg (NEG) Nasal Screen MRSA (PCR) Negative (Negative) Test 11/21/16 16:51 11/21/16 20:47 11/22/16 04:30 11/22/16 07:19 Glucose (Fingerstick) 127mg/dL (70-99) 122mg/dL (70-99) 158mg/dL (70-99) White Blood Count 9.1x10^3/uL (4.0-11.0) Red Blood Count 4.62x10^6/uL (4.30-5.70) Hemoglobin 13.6g/dL (13.0-17.5) Hematocrit 40.2% (39.0-53.0) Mean Corpuscular Volume 87fL (79-100) Mean Corpuscular Hemoglobin 29pg (25-35) Mean Corpuscular Hemoglobin Concent 34g/dL (31-37) Red Cell Distribution Width 14.8% (11.5-14.5) Platelet Count 491x10^3/uL (140-400) Neutrophils (%) (Auto) 54% (31-73) Lymphocytes (%) (Auto) 33% (24-48) Monocytes (%) (Auto) 9% (0-9) Eosinophils (%) (Auto) 2% (0-3) Basophils (%) (Auto) 1% (0-3) Neutrophils # (Auto) 5.0x10^3uL (1.8-7.7) Lymphocytes # (Auto) 3.0x10^3/uL (1.0-4.8) Monocytes # (Auto) 0.8x10^3/uL (0.0-1.1) Eosinophils # (Auto) 0.2x10^3/uL (0.0-0.7) Basophils # (Auto) 0.1x10^3/uL (0.0-0.2) Erythrocyte Sedimentation Rate 32 (0-15) Prothrombin Time 24.9SEC (11.7-14.0) Prothromb Time International Ratio 2.4 (0.8-1.1) Sodium Level 140mmol/L (136-145) Potassium Level 3.9mmol/L (3.5-5.1) Chloride Level 106mmol/L (98-107) Carbon Dioxide Level 26mmol/L (21-32) Anion Gap 8 (6-14) Blood Urea Nitrogen 21mg/dL (8-26) Creatinine 0.8mg/dL (0.7-1.3) Estimated GFR (Cockcroft-Gault) 92.1 BUN/Creatinine Ratio 26 (6-20) Glucose Level 158mg/dL (70-99) Calcium Level 10.6mg/dL (8.5-10.1) Total Bilirubin 0.5mg/dL (0.2-1.0) Aspartate Amino Transf (AST/SGOT) 19U/L (15-37) Alanine Aminotransferase (ALT/SGPT) 19U/L (16-63) Alkaline Phosphatase 74U/L (46-116) Total Protein 6.3g/dL (6.4-8.2) Albumin 3.2g/dL (3.4-5.0) Albumin/Globulin Ratio 1.0 (1.0-1.7) Vitamin B12 Level 347pg/mL (247-911) Serum Folate 19.41ng/ml (3.2-20.0) Thyroid Stimulating Hormone (TSH) 1.111uIU/mL (0.358-3.74) Laboratory Tests Test 11/21/16 16:30 11/21/16 16:51 11/21/16 20:47 11/22/16 04:30 Nasal Screen MRSA (PCR) Negative (Negative) Glucose (Fingerstick) 127mg/dL (70-99) 122mg/dL (70-99) White Blood Count 9.1x10^3/uL (4.0-11.0) Red Blood Count 4.62x10^6/uL (4.30-5.70) Hemoglobin 13.6g/dL (13.0-17.5) Hematocrit 40.2% (39.0-53.0) Mean Corpuscular Volume 87fL (79-100) Mean Corpuscular Hemoglobin 29pg (25-35) Mean Corpuscular Hemoglobin Concent 34g/dL (31-37) Red Cell Distribution Width 14.8% (11.5-14.5) Platelet Count 491x10^3/uL (140-400) Neutrophils (%) (Auto) 54% (31-73) Lymphocytes (%) (Auto) 33% (24-48) Monocytes (%) (Auto) 9% (0-9) Eosinophils (%) (Auto) 2% (0-3) Basophils (%) (Auto) 1% (0-3) Neutrophils # (Auto) 5.0x10^3uL (1.8-7.7) Lymphocytes # (Auto) 3.0x10^3/uL (1.0-4.8) Monocytes # (Auto) 0.8x10^3/uL (0.0-1.1) Eosinophils # (Auto) 0.2x10^3/uL (0.0-0.7) Basophils # (Auto) 0.1x10^3/uL (0.0-0.2) Erythrocyte Sedimentation Rate 32 (0-15) Prothrombin Time 24.9SEC (11.7-14.0) Prothromb Time International Ratio 2.4 (0.8-1.1) Sodium Level 140mmol/L (136-145) Potassium Level 3.9mmol/L (3.5-5.1) Chloride Level 106mmol/L (98-107) Carbon Dioxide Level 26mmol/L (21-32) Anion Gap 8 (6-14) Blood Urea Nitrogen 21mg/dL (8-26) Creatinine 0.8mg/dL (0.7-1.3) Estimated GFR (Cockcroft-Gault) 92.1 BUN/Creatinine Ratio 26 (6-20) Glucose Level 158mg/dL (70-99) Calcium Level 10.6mg/dL (8.5-10.1) Total Bilirubin 0.5mg/dL (0.2-1.0) Aspartate Amino Transf (AST/SGOT) 19U/L (15-37) Alanine Aminotransferase (ALT/SGPT) 19U/L (16-63) Alkaline Phosphatase 74U/L (46-116) Total Protein 6.3g/dL (6.4-8.2) Albumin 3.2g/dL (3.4-5.0) Albumin/Globulin Ratio 1.0 (1.0-1.7) Vitamin B12 Level 347pg/mL (247-911) Serum Folate 19.41ng/ml (3.2-20.0) Thyroid Stimulating Hormone (TSH) 1.111uIU/mL (0.358-3.74) Test 11/22/16 07:19 Glucose (Fingerstick) 158mg/dL (70-99) Medications Current Medications Aspirin (Ecotrin) 325 mg 1X ONCE PO Last administered on 11/21/16t 12:35; Start 11/21/16 at 12:45; Stop 11/21/16 at 12:46; Status DC Ondansetron HCl (Zofran) 4 mg PRN Q8HRS PRN IV NAUSEA/VOMITING; Start 11/21/16 at 13:15; Stop 11/22/16 at 09:43; Status DC Morphine Sulfate 2 mg PRN Q2HR PRN IV PAIN; Start 11/21/16 at 13:15; Stop 11/22 at 13:14; Status DC Warfarin Sodium (Coumadin Per Pharmacy) 1 each PRN DAILY PRN MC SEE COMMENTS Last administered on 11/21/16 18:02; Start 11/21/16 at 15:30 Warfarin Sodium 2.5 mg 2.5 mg DAILY16 PO Last administered on 11/21/16 18:32; Start 11/21/16 at 18:00 Dextrose/Sodium Chloride (Iv D5% - 1/2 NS) 1,000 ml @ 100 mls/hr Q10H IV Last administered on 11/22/16 12:51; Start 11/21/16 at 23:00 Ondansetron HCl (Zofran) 4 mg PRN Q6HRS PRN IV NAUSEA/VOMITING; Start 11/22/16 at 09:42 Active Scripts Active Reported Warfarin Sodium 2.5 Mg Tablet 2.5 Mg PO DAILY Protonix (Pantoprazole Sodium) 40 Mg Tablet.dr 40 Mg PO DAILY Propafenone Hcl 150 Mg Tablet 150 Mg PO BID Potassium Chloride 20 Meq Tablet.er 20 Meq PO BID Metformin Hcl Er (Metformin Hcl) 500 Mg Tab.er.24h 500 Mg PO BIDWMEALS Lipitor (Atorvastatin Calcium) 20 Mg Tablet 20 Mg PO HS Lidoderm (Lidocaine) 700 Mg Adh..patch 1 Patch TP DAILY Albuterol Sulfate Neb Soln (Albuterol Sulfate) 2.5 Mg/3 Ml Vial.neb 2.5 Mg NEB PRN Q4HRS PRN Acetaminophen 500 Mg Tablet 1 Tab PO Q8HRS Vitals/I & O Vital Sign - Last 24 Hours 11/21/16 11/21/16 11/21/16 11/21/16 14:00 14:30 16:39 16:40 Temp 98.5 98.5 98.5 98.5 Pulse 91 91 95 95 Resp B/P 138/94 144/82 160/115 160/115 Pulse Ox 96 96 96 96 O2 Delivery Room Air Room Air Room Air 11/21/16 11/21/16 11/21/16 11/22/16 19:30 20:00 23:25 03:25 Temp 97.7 97.5 97.5 97.7 97.5 97.5 Pulse 91 92 87 Resp 18 B/P 125/83 128/77 115/69 Pulse Ox 96 93 94 O2 Delivery Room Air Room Air Room Air Room Air 11/22/16 11/22/16 11/22/16 07:00 08:00 11:00 Temp 97.8 97.9 97.8 97.9 Pulse 91 95 Resp 20 20 B/P 122/74 143/91 Pulse Ox 94 95 O2 Delivery Room Air Room Air Room Air Intake and Output 11/21/16 11/21/16 11/22/16 15:00 23:00 07:00 Intake Total 0 ml 0 ml Balance 0 ml 0 ml KARY GALLARDO MD Nov 22, 2016 14:01
[2016-11-22] MEDS ORDERED: KETOROLAC 15 MG/ML VIAL. IV PRN (14:15)
[2016-11-22] MEDS: WARFARIN 2.5 MG TABLET. PO SCH (14:15)
[2016-11-22 15:00] VITALS: BP 128/85
[2016-11-22] MEDS: LIDOCAINE (700MG/PATCH) PATCH. TD SCH (15:31)
--- NOTE | 2016-11-22 15:37 | RAD ---
Indication pain. Internally and externally rotated views of the right shoulder were obtained as well as a Y view. There are significant degenerative changes at the AC joint. An acute bony finding is not seen. There is some volume loss at the right lung base probably reflecting atelectasis. 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 No acute finding seen
[2016-11-22] MEDS: ALBUTEROL SULFATE 2.5 MG/3 ML NEBU. NEB SCH ×2 (15:59→20:42)
--- NOTE | 2016-11-22 16:43 | CARD ---
APPROVED REPORT EXAM: Two-dimensional and M-mode echocardiogram with Doppler and color Doppler. Other Information Quality : Good INDICATION CVA/TIA 2D DIMENSIONS RVDd3.9 (2.9-3.5cm)Left Atrium(2D)4.3 (1.6-4.0cm) IVSd1.1 (0.7-1.1cm)Aortic Root(2D)3.2 (2.0-3.7cm) LVDd3.6 (3.9-5.9cm)LVOT Diameter2.1 (1.8-2.4cm) PWd1.1 (0.7-1.1cm)LVDs1.6 (2.5-4.0cm) FS (%) 30.0 %SV47.3 ml LVEF(%)60.0 (>50%) Aortic Valve AoV Peak Elmer.90.1cm/sAoV VTI12.9cm AO Peak GR.3.2mmHgLVOT VTI 8.35cm AO Mean GR.2mmHgAVA (VTI)2.20cm2 Mitral Valve MV E Bsrivyee90.5cm/sMV DECEL OCOK520mo MV A Shvamfvx16.5cm/sE/A Ratio0.7 TDI Lateral E' P. V10.49cm/sMedial E' P. V6.50cm/s E/Lateral E'4.4E/Medial E'7.2 Tricuspid Valve TR P. [id number]/sRAP [id number] TR Peak Gr.90vgCzRXWC84kkMm LEFT VENTRICLE The left ventricle is normal size. There is normal left ventricular wall thickness. The left ventricu lar systolic function is normal and the ejection fraction is within normal range. The Ejection Fracti on is 60%. There is normal LV segmental wall motion. Transmitral Doppler flow pattern is Grade I-abno rmal relaxation pattern. RIGHT VENTRICLE The right ventricle is normal size. The right ventricular systolic function is normal. ATRIA The left atrium is mildly dilated. The right atrium size is normal. The interatrial septum is intact with no evidence for an atrial septal defect or patent foramen ovale as noted on 2-D or Doppler imagi ng. AORTIC VALVE The aortic valve is calcified but opens well. Doppler and Color Flow revealed no significant aortic r egurgitation. There is no significant aortic valvular stenosis. MITRAL VALVE The mitral valve is calcified but opens well. There is no evidence of mitral valve prolapse. There is no mitral valve stenosis. Doppler and Color Flow revealed no mitral valve regurgitation noted. TRICUSPID VALVE The tricuspid valve is normal in structure and function. Doppler and Color Flow revealed physiologica l tricuspid regurgitation. There is no pulmonary hypertension. The PA pressure was estimated at 21 mm Hg. There is no tricuspid valve stenosis. PULMONIC VALVE The pulmonary valve is normal in structure Doppler and Color Flow revealed trace to mild pulmonic shanna vular regurgitation. There is no pulmonic valvular stenosis. GREAT VESSELS The aortic root is normal in size. The ascending aorta is not well seen. The IVC was not visualized. PERICARDIAL EFFUSION There is no evidence of significant pericardial effusion. Critical Notification Critical Value: No <Conclusion> The left ventricular systolic function is normal and the ejection fraction is within normal range. The Ejection Fraction is 60%. Transmitral Doppler flow pattern is Grade I-abnormal relaxation pattern. The left atrium is mildly dilated. The right atrium size is normal. The aortic valve is calcified but opens well. The mitral valve is calcified but opens well. Doppler and Color Flow revealed physiological tricuspid regurgitation. There is no pulmonary hypertension. The PA pressure was estimated at 21 mmHg. Doppler and Color Flow revealed trace to mild pulmonic valvular regurgitation. There is no evidence of significant pericardial effusion.
[2016-11-22] MEDS ORDERED: METHYL SALICYLATE/MENTHOL TOPICAL OINTMENT 29GM TUBE. TP PRN (17:15)
[2016-11-22 19:30] VITALS: BP 145/90
[2016-11-22] MEDS: FAMOTIDINE 20 MG/2 ML VIAL IVP SCH (21:47)
[2016-11-22 23:30] VITALS: BP 113/73
--- NOTE | 2016-11-23 01:43 | CONS ---
DATE OF CONSULTATION: 11/22/2016 ATTENDING PHYSICIAN: Dr. Swartz. The patient was seen at the request of Dr. Diez for rehab evaluation. HISTORY OF PRESENT ILLNESS: This is an 86-year-old male patient was initially at [facility] then moved to a fdc care unit and transported to [facility] through the Emergency Room on 11/21/2016 with mental status change. In the last 3 days, he was noted with generalized weakness and slurring of the speech. The patient had history of atrial fibrillation, hypertension, hyperlipidemia, chronic obstructive pulmonary disease, previous pulmonary embolism and deep venous thrombosis, chronic lower back pain, diabetes mellitus, status post permanent pacemaker placement, cataract removal, hernia surgery, tonsillectomy, cervical and lumbar spine surgery, cardiac ablation. IS KNOWN ALLERGIC TO CARBIDOPA, CODEINE, LEVODOPA, AND LISINOPRIL. Prior to the onset top of recent illness, he lived with his in [place], [place], home had one step to enter the house and he has been walking using a roller walker before patient since admission was evaluated for cerebrovascular accident. CT scan of the brain failed to reveal any acute abnormality. It revealed mild chronic ischemic changes in the deep white matter bilaterally, cerebral atrophy and carotid Doppler studies failed to reveal any significant stenotic disease. The patient could not have an MRI scan secondary to his pacemaker. He did not do well with swallowing study and he requires maximal help with transfers as per physical therapy and occupational therapy. The patient admitted stiffness of his right shoulder with associated some discomfort and x-rays revealed degenerative changes and also revealed volume loss right lower lung base. The patient denied any significant pain any place except he admitted some lower back pain. PHYSICAL EXAMINATION: Today revealed an elderly male. He is awake, oriented to place and person. The patient is having some word finding difficulties. He moves all 4 extremities voluntarily where he had 4+/5 grade muscle strength. He has some stiffness of right shoulder and crepitus on range of motion of both shoulders. The patient had decreased deep tendon reflexes in the upper extremities, exaggerated at both knees. The patient had 1+ left ankle jerk and 2+ at right ankle jerks. He had equal perception of touch and pinprick sensation bilaterally. He requires help with bed mobility. I have not tested his transfers or ambulation skills at this time. He is using oxygen by nasal cannula, is receiving IV fluids and he had ____ diaper in place for urinary incontinence. His skin seems to be intact at present time. No significant tenderness to palpation over cervical, thoracic or lumbar spine area. ASSESSMENT: An elderly male with recent onset of mental status changes without any significant weakness of the extremities. He had some stiffness of his right shoulder secondary to degenerative changes. No obvious visual field cut or facial asymmetry noted. He had some word finding difficulties and he did not do well with swallowing evaluation. He also presents with hyperreflexia in his knees probably residual from his cervical spine surgery, which he might had it for cervical spinal stenosis. The patient also with known hypertension, atrial fibrillation, hyperlipidemia, chronic obstructive pulmonary disease, previous deep vein thrombosis, pulmonary embolus, chronic lower back pain, diabetes mellitus, status post permanent pacemaker placement. RECOMMENDATIONS: He seemed to be a fairly good candidate for continued inpatient rehab program to ask social service to evaluate for transfer to acute rehab or fdc care unit. At present time, he is not having that much pain in his right shoulder to hold up any steroid injection to the shoulder. Dr. Diez, I appreciate asking me to participate in the care of this interesting patient. I will be glad to follow him with you as needed for his rehabilitation. SCOTT DUMONT MD DR: CARLOS/jackson JOB#: [id number] / [id number]
[2016-11-23 03:15] VITALS: BP 112/69
[2016-11-23 07:00] VITALS: BP 155/83
[2016-11-23 07:30] LABS: INR 2.6 (0.8-1.1)
--- NOTE | 2016-11-23 07:36 | RAD ---
Portable chest, 11/22/2016: History: Abnormal shoulder x-ray Comparison is made to a study from 02/17/2010. A left-sided transvenous pacemaker remains in place with 2 leads extending in the right heart. The heart size and pulmonary vascularity are normal. There is calcific plaquing of the aorta. The left chest is clear. The right hemidiaphragm is now moderately elevated. There are mild streaky right basilar opacities compatible with discoid atelectasis. No pleural fluid is evident. IMPRESSION: Moderate elevation of the right hemidiaphragm with right basilar discoid atelectasis.
--- NOTE | 2016-11-23 08:57 | PDOC ---
PROGRESS NOTES Subjective Subjective No new complaints.He denies any specific area of pain but admits generalized body aches. Objective Objective Vital Signs Date Time Temp Pulse Resp B/P Pulse Ox O2 Delivery O2 Flow Rate FiO2 11/23/16 07:00 98.3 86 18 155/83 94 Room Air 98.3 Intake and Output 11/23/16 07:00 Intake Total 0 ml Balance 0 ml Intake Oral 0 ml # Voids 6 Physical Exam Physical Exam He is comfortable lying on his back and he requires maximal help with mobility and self care and he continues with some word finding difficulties. Assessment Assessment Problems Medical Problems: (1) Right sided weakness Status: Acute (2) Slurred speech Status: Acute Plan Plan of Care To get him up as tolerated and hope speech pathology can perform video dysphagia study before he can be transferred to rehab or SNF for continued care. Comment Review of Relevant I have reviewed the following items markel (where applicable) has been applied. Labs Laboratory Tests Test 11/21/16 12:17 11/21/16 12:30 11/21/16 12:55 11/21/16 16:30 Glucose (Fingerstick) 166mg/dL (70-99) White Blood Count 8.5x10^3/uL (4.0-11.0) Red Blood Count 4.86x10^6/uL (4.30-5.70) Hemoglobin 14.3g/dL (13.0-17.5) Hematocrit 43.4% (39.0-53.0) Mean Corpuscular Volume 89fL (79-100) Mean Corpuscular Hemoglobin 30pg (25-35) Mean Corpuscular Hemoglobin Concent 33g/dL (31-37) Red Cell Distribution Width 14.6% (11.5-14.5) Platelet Count 577x10^3/uL (140-400) Neutrophils (%) (Auto) 58% (31-73) Lymphocytes (%) (Auto) 30% (24-48) Monocytes (%) (Auto) 9% (0-9) Eosinophils (%) (Auto) 2% (0-3) Basophils (%) (Auto) 1% (0-3) Neutrophils # (Auto) 4.9x10^3uL (1.8-7.7) Lymphocytes # (Auto) 2.6x10^3/uL (1.0-4.8) Monocytes # (Auto) 0.8x10^3/uL (0.0-1.1) Eosinophils # (Auto) 0.1x10^3/uL (0.0-0.7) Basophils # (Auto) 0.1x10^3/uL (0.0-0.2) Prothrombin Time 24.3SEC (11.7-14.0) Prothromb Time International Ratio 2.3 (0.8-1.1) Activated Partial Thromboplast Time 34SEC (24-38) Sodium Level 143mmol/L (136-145) Potassium Level 4.5mmol/L (3.5-5.1) Chloride Level 105mmol/L (98-107) Carbon Dioxide Level 30mmol/L (21-32) Anion Gap 8 (6-14) Blood Urea Nitrogen 19mg/dL (8-26) Creatinine 0.9mg/dL (0.7-1.3) Estimated GFR (Cockcroft-Gault) 80.4 Glucose Level 142mg/dL (70-99) Calcium Level 11.0mg/dL (8.5-10.1) Total Bilirubin 0.4mg/dL (0.2-1.0) Direct Bilirubin 0.2mg/dL (0.0-0.2) Aspartate Amino Transf (AST/SGOT) 18U/L (15-37) Alanine Aminotransferase (ALT/SGPT) 21U/L (16-63) Alkaline Phosphatase 83U/L (46-116) Troponin I Quantitative < 0.017ng/mL (0.000-0.055) Total Protein 7.0g/dL (6.4-8.2) Albumin 3.5g/dL (3.4-5.0) Urine Collection Type Unknown Urine Color Yellow Urine Clarity Clear Urine pH 5.5 Urine Specific Lyons 1.025 Urine Protein Negativemg/dL (NEG-TRACE) Urine Glucose (UA) Negativemg/dL (NEG) Urine Ketones (Stick) 15mg/dL (NEG) Urine Blood Negative (NEG) Urine Nitrite Negative (NEG) Urine Bilirubin Small (NEG) Urine Urobilinogen Dipstick 1.0mg/dL (0.2 mg/dL) Urine Leukocyte Esterase Negative (NEG) Urine RBC Occ/HPF (0-2) Urine WBC Occ/HPF (0-4) Urine Bacteria 0/HPF (0-FEW) Urine Hyaline Casts Few/HPF Urine Mucus Marked/LPF Urine Opiates Screen Neg (NEG) Urine Methadone Screen Neg (NEG) Urine Barbiturates Neg (NEG) Urine Phencyclidine Screen Neg (NEG) Urine Amphetamine/Methamphetamine Neg (NEG) Urine Benzodiazepines Screen Neg (NEG) Urine Cocaine Screen Neg (NEG) Urine Cannabinoids Screen Neg (NEG) Urine Ethyl Alcohol Neg (NEG) Nasal Screen MRSA (PCR) Negative (Negative) Test 11/21/16 16:51 11/21/16 20:47 11/22/16 04:30 11/22/16 07:19 Glucose (Fingerstick) 127mg/dL (70-99) 122mg/dL (70-99) 158mg/dL (70-99) White Blood Count 9.1x10^3/uL (4.0-11.0) Red Blood Count 4.62x10^6/uL (4.30-5.70) Hemoglobin 13.6g/dL (13.0-17.5) Hematocrit 40.2% (39.0-53.0) Mean Corpuscular Volume 87fL (79-100) Mean Corpuscular Hemoglobin 29pg (25-35) Mean Corpuscular Hemoglobin Concent 34g/dL (31-37) Red Cell Distribution Width 14.8% (11.5-14.5) Platelet Count 491x10^3/uL (140-400) Neutrophils (%) (Auto) 54% (31-73) Lymphocytes (%) (Auto) 33% (24-48) Monocytes (%) (Auto) 9% (0-9) Eosinophils (%) (Auto) 2% (0-3) Basophils (%) (Auto) 1% (0-3) Neutrophils # (Auto) 5.0x10^3uL (1.8-7.7) Lymphocytes # (Auto) 3.0x10^3/uL (1.0-4.8) Monocytes # (Auto) 0.8x10^3/uL (0.0-1.1) Eosinophils # (Auto) 0.2x10^3/uL (0.0-0.7) Basophils # (Auto) 0.1x10^3/uL (0.0-0.2) Erythrocyte Sedimentation Rate 32 (0-15) Prothrombin Time 24.9SEC (11.7-14.0) Prothromb Time International Ratio 2.4 (0.8-1.1) Sodium Level 140mmol/L (136-145) Potassium Level 3.9mmol/L (3.5-5.1) Chloride Level 106mmol/L (98-107) Carbon Dioxide Level 26mmol/L (21-32) Anion Gap 8 (6-14) Blood Urea Nitrogen 21mg/dL (8-26) Creatinine 0.8mg/dL (0.7-1.3) Estimated GFR (Cockcroft-Gault) 92.1 BUN/Creatinine Ratio 26 (6-20) Glucose Level 158mg/dL (70-99) Calcium Level 10.6mg/dL (8.5-10.1) Total Bilirubin 0.5mg/dL (0.2-1.0) Aspartate Amino Transf (AST/SGOT) 19U/L (15-37) Alanine Aminotransferase (ALT/SGPT) 19U/L (16-63) Alkaline Phosphatase 74U/L (46-116) Total Protein 6.3g/dL (6.4-8.2) Albumin 3.2g/dL (3.4-5.0) Albumin/Globulin Ratio 1.0 (1.0-1.7) Vitamin B12 Level 347pg/mL (247-911) Serum Folate 19.41ng/ml (3.2-20.0) Thyroid Stimulating Hormone (TSH) 1.111uIU/mL (0.358-3.74) Test 11/22/16 17:17 11/23/16 06:40 11/23/16 07:33 Glucose (Fingerstick) 144mg/dL (70-99) 161mg/dL (70-99) Prothrombin Time 26.0SEC (11.7-14.0) Prothromb Time International Ratio 2.6 (0.8-1.1) Calcium Level 9.9mg/dL (8.5-10.1) Laboratory Tests Test 11/22/16 17:17 11/23/16 06:40 11/23/16 07:33 Glucose (Fingerstick) 144mg/dL (70-99) 161mg/dL (70-99) Prothrombin Time 26.0SEC (11.7-14.0) Prothromb Time International Ratio 2.6 (0.8-1.1) Calcium Level 9.9mg/dL (8.5-10.1) Medications Current Medications Aspirin (Ecotrin) 325 mg 1X ONCE PO Last administered on 11/21/16 12:35; Start 11/21/16 at 12:45; Stop 11/21/16 at 12:46; Status DC Ondansetron HCl (Zofran) 4 mg PRN Q8HRS PRN IV NAUSEA/VOMITING; Start 11/21/16 at 13:15; Stop 11/22/16 at 09:43; Status DC Morphine Sulfate 2 mg PRN Q2HR PRN IV PAIN; Start 11/21/16 at 13:15; Stop 11/22 at 13:14; Status DC Warfarin Sodium (Coumadin Per Pharmacy) 1 each PRN DAILY PRN MC SEE COMMENTS Last administered on 11/22/16 14:16; Start 11/21/16 at 15:30 Warfarin Sodium 2.5 mg 2.5 mg DAILY16 PO Last administered on 11/21/16 18:32; Start 11/21/16 at 18:00; Stop 11/22/16 at 14:22; Status DC Dextrose/Sodium Chloride (Iv D5% - 1/2 NS) 1,000 ml @ 75 mls/hr [id number] IV Last administered on 11/22/16 21:49; Start 11/21/16 at 23:00 Ondansetron HCl (Zofran) 4 mg PRN Q6HRS PRN IV NAUSEA/VOMITING; Start 11/22/16 at 09:42 Famotidine (Pepcid) 20 mg BID IVP Last administered on 11/22/16 21:47; Start 11/22/16 at 21:00 Lidocaine (Lidoderm) 1 patch DAILY TD Last administered on 11/22/16 15:31; Start 11/22/16 at 15:00 Albuterol Sulfate (Ventolin Neb Soln) 2.5 mg RTQID NEB Last administered on 20:42; Start 11/22/16 at 16:00 Ketorolac Tromethamine (Toradol) 15 mg PRN Q6HRS PRN IV PAIN; Start 11/22/16 at 14:15; Stop 11/27/16 at 14:14 Warfarin Sodium (Coumadin - No Dose Today) 1 each 1X WARF ONCE MC ; Start 11/22 at 16:00; Stop 11/22/16 at 16:01; Status DC Multi-Ingredient Ointment (Analgesic [place]) 1 raymundo PRN QID PRN TP MUSCLE PAIN; Start 11/22/16 at 17:15 Active Scripts Active Reported Warfarin Sodium 2.5 Mg Tablet 2.5 Mg PO DAILY Protonix (Pantoprazole Sodium) 40 Mg Tablet.dr 40 Mg PO DAILY Propafenone Hcl 150 Mg Tablet 150 Mg PO BID Potassium Chloride 20 Meq Tablet.er 20 Meq PO BID Metformin Hcl Er (Metformin Hcl) 500 Mg Tab.er.24h 500 Mg PO BIDWMEALS Lipitor (Atorvastatin Calcium) 20 Mg Tablet 20 Mg PO HS Lidoderm (Lidocaine) 700 Mg Adh..patch 1 Patch TP DAILY Albuterol Sulfate Neb Soln (Albuterol Sulfate) 2.5 Mg/3 Ml Vial.neb 2.5 Mg NEB PRN Q4HRS PRN Acetaminophen 500 Mg Tablet 1 Tab PO Q8HRS Vitals/I & O Vital Sign - Last 24 Hours 11/22/16 11/22/16 11/22/16 11/22/16 11:00 15:00 16:02 19:30 Temp 97.9 97.8 98.1 97.9 97.8 98.1 Pulse 95 92 91 Resp 20 20 18 B/P 143/91 128/85 145/90 Pulse Ox 95 95 95 94 O2 Delivery Room Air Room Air Room Air Room Air 11/22/16 11/22/16 11/22/16 11/23/16 19:44 20:42 23:30 03:15 Temp 97.9 99.3 97.9 99.3 Pulse 90 84 Resp 18 18 B/P 113/73 112/69 Pulse Ox 94 92 93 O2 Delivery Room Air Room Air Room Air Room Air 11/23/16 07:00 Temp 98.3 98.3 Pulse 86 Resp 18 B/P 155/83 Pulse Ox 94 O2 Delivery Room Air Intake and Output 11/22/16 11/22/16 11/23/16 15:00 23:00 07:00 Intake Total 0 ml 0 ml Balance 0 ml 0 ml SCOTT DUMONT MD Nov 23, 2016 08:57
[2016-11-23] MEDS: LIDOCAINE (700MG/PATCH) PATCH. TD SCH (09:00)
--- NOTE | 2016-11-23 09:00 | PDOC ---
PROGRESS NOTES Chief Complaint Chief Complaint CVA, possibly small lefty lacunar stroke acute on chronic encephalopathy, vascular dementia 'CVA syndrome, acute encephalopathy weakness and debility R shoulder pain FAll risk SNU resident DNR Dysphagia History of Present Illness History of Present Illness R shoulder xray shows: IMPRESSION: Substantial degenerative changes at the AC joint. No acute finding seen Signif pain in the area Lives at home, but needs SNU per pT VS ok Still NPO, PRODUCT SPECIALIST has not evaluated Weak, high fall risk On dextrose iVF PLAN: Await PRODUCT SPECIALIST Needs 3 mN Needs NSU SW on case COnt pT Other supprotive care DNR Vitals Vitals Vital Signs Date Time Temp Pulse Resp B/P Pulse Ox O2 Delivery O2 Flow Rate FiO2 11/23/16 07:00 98.3 86 18 155/83 94 Room Air 98.3 Physical Exam General: Alert, mild distress, Other Heart: Regular rate, Normal S1, Normal S2 Lungs: Wheezing Abdomen: Normal bowel sounds Extremities: No clubbing, No edema, Normal pulses Labs LABS Laboratory Tests Test 11/22/16 17:17 11/23/16 06:40 11/23/16 07:33 Glucose (Fingerstick) 144mg/dL (70-99) 161mg/dL (70-99) Prothrombin Time 26.0SEC (11.7-14.0) Prothromb Time International Ratio 2.6 (0.8-1.1) Calcium Level 9.9mg/dL (8.5-10.1) Review of Systems Review of Systems limited, dementia - R shoulder pain Assessment and Plan Assessmemt and Plan Problems Medical Problems: (1) Right sided weakness Status: Acute (2) Slurred speech Status: Acute Problems: Comment Review of Relevant I have reviewed the following items markel (where applicable) has been applied. Labs Laboratory Tests Test 11/21/16 12:17 11/21/16 12:30 11/21/16 12:55 11/21/16 16:30 Glucose (Fingerstick) 166mg/dL (70-99) White Blood Count 8.5x10^3/uL (4.0-11.0) Red Blood Count 4.86x10^6/uL (4.30-5.70) Hemoglobin 14.3g/dL (13.0-17.5) Hematocrit 43.4% (39.0-53.0) Mean Corpuscular Volume 89fL (79-100) Mean Corpuscular Hemoglobin 30pg (25-35) Mean Corpuscular Hemoglobin Concent 33g/dL (31-37) Red Cell Distribution Width 14.6% (11.5-14.5) Platelet Count 577x10^3/uL (140-400) Neutrophils (%) (Auto) 58% (31-73) Lymphocytes (%) (Auto) 30% (24-48) Monocytes (%) (Auto) 9% (0-9) Eosinophils (%) (Auto) 2% (0-3) Basophils (%) (Auto) 1% (0-3) Neutrophils # (Auto) 4.9x10^3uL (1.8-7.7) Lymphocytes # (Auto) 2.6x10^3/uL (1.0-4.8) Monocytes # (Auto) 0.8x10^3/uL (0.0-1.1) Eosinophils # (Auto) 0.1x10^3/uL (0.0-0.7) Basophils # (Auto) 0.1x10^3/uL (0.0-0.2) Prothrombin Time 24.3SEC (11.7-14.0) Prothromb Time International Ratio 2.3 (0.8-1.1) Activated Partial Thromboplast Time 34SEC (24-38) Sodium Level 143mmol/L (136-145) Potassium Level 4.5mmol/L (3.5-5.1) Chloride Level 105mmol/L (98-107) Carbon Dioxide Level 30mmol/L (21-32) Anion Gap 8 (6-14) Blood Urea Nitrogen 19mg/dL (8-26) Creatinine 0.9mg/dL (0.7-1.3) Estimated GFR (Cockcroft-Gault) 80.4 Glucose Level 142mg/dL (70-99) Calcium Level 11.0mg/dL (8.5-10.1) Total Bilirubin 0.4mg/dL (0.2-1.0) Direct Bilirubin 0.2mg/dL (0.0-0.2) Aspartate Amino Transf (AST/SGOT) 18U/L (15-37) Alanine Aminotransferase (ALT/SGPT) 21U/L (16-63) Alkaline Phosphatase 83U/L (46-116) Troponin I Quantitative < 0.017ng/mL (0.000-0.055) Total Protein 7.0g/dL (6.4-8.2) Albumin 3.5g/dL (3.4-5.0) Urine Collection Type Unknown Urine Color Yellow Urine Clarity Clear Urine pH 5.5 Urine Specific [place] 1.025 Urine Protein Negativemg/dL (NEG-TRACE) Urine Glucose (UA) Negativemg/dL (NEG) Urine Ketones (Stick) 15mg/dL (NEG) Urine Blood Negative (NEG) Urine Nitrite Negative (NEG) Urine Bilirubin Small (NEG) Urine Urobilinogen Dipstick 1.0mg/dL (0.2 mg/dL) Urine Leukocyte Esterase Negative (NEG) Urine RBC Occ/HPF (0-2) Urine WBC Occ/HPF (0-4) Urine Bacteria 0/HPF (0-FEW) Urine Hyaline Casts Few/HPF Urine Mucus Marked/LPF Urine Opiates Screen Neg (NEG) Urine Methadone Screen Neg (NEG) Urine Barbiturates Neg (NEG) Urine Phencyclidine Screen Neg (NEG) Urine Amphetamine/Methamphetamine Neg (NEG) Urine Benzodiazepines Screen Neg (NEG) Urine Cocaine Screen Neg (NEG) Urine Cannabinoids Screen Neg (NEG) Urine Ethyl Alcohol Neg (NEG) Nasal Screen MRSA (PCR) Negative (Negative) Test 11/21/16 16:51 11/21/16 20:47 11/22/16 04:30 11/22/16 07:19 Glucose (Fingerstick) 127mg/dL (70-99) 122mg/dL (70-99) 158mg/dL (70-99) White Blood Count 9.1x10^3/uL (4.0-11.0) Red Blood Count 4.62x10^6/uL (4.30-5.70) Hemoglobin 13.6g/dL (13.0-17.5) Hematocrit 40.2% (39.0-53.0) Mean Corpuscular Volume 87fL (79-100) Mean Corpuscular Hemoglobin 29pg (25-35) Mean Corpuscular Hemoglobin Concent 34g/dL (31-37) Red Cell Distribution Width 14.8% (11.5-14.5) Platelet Count 491x10^3/uL (140-400) Neutrophils (%) (Auto) 54% (31-73) Lymphocytes (%) (Auto) 33% (24-48) Monocytes (%) (Auto) 9% (0-9) Eosinophils (%) (Auto) 2% (0-3) Basophils (%) (Auto) 1% (0-3) Neutrophils # (Auto) 5.0x10^3uL (1.8-7.7) Lymphocytes # (Auto) 3.0x10^3/uL (1.0-4.8) Monocytes # (Auto) 0.8x10^3/uL (0.0-1.1) Eosinophils # (Auto) 0.2x10^3/uL (0.0-0.7) Basophils # (Auto) 0.1x10^3/uL (0.0-0.2) Erythrocyte Sedimentation Rate 32 (0-15) Prothrombin Time 24.9SEC (11.7-14.0) Prothromb Time International Ratio 2.4 (0.8-1.1) Sodium Level 140mmol/L (136-145) Potassium Level 3.9mmol/L (3.5-5.1) Chloride Level 106mmol/L (98-107) Carbon Dioxide Level 26mmol/L (21-32) Anion Gap 8 (6-14) Blood Urea Nitrogen 21mg/dL (8-26) Creatinine 0.8mg/dL (0.7-1.3) Estimated GFR (Cockcroft-Gault) 92.1 BUN/Creatinine Ratio 26 (6-20) Glucose Level 158mg/dL (70-99) Calcium Level 10.6mg/dL (8.5-10.1) Total Bilirubin 0.5mg/dL (0.2-1.0) Aspartate Amino Transf (AST/SGOT) 19U/L (15-37) Alanine Aminotransferase (ALT/SGPT) 19U/L (16-63) Alkaline Phosphatase 74U/L (46-116) Total Protein 6.3g/dL (6.4-8.2) Albumin 3.2g/dL (3.4-5.0) Albumin/Globulin Ratio 1.0 (1.0-1.7) Vitamin B12 Level 347pg/mL (247-911) Serum Folate 19.41ng/ml (3.2-20.0) Thyroid Stimulating Hormone (TSH) 1.111uIU/mL (0.358-3.74) Test 11/22/16 17:17 11/23/16 06:40 11/23/16 07:33 Glucose (Fingerstick) 144mg/dL (70-99) 161mg/dL (70-99) Prothrombin Time 26.0SEC (11.7-14.0) Prothromb Time International Ratio 2.6 (0.8-1.1) Calcium Level 9.9mg/dL (8.5-10.1) Laboratory Tests Test 11/22/16 17:11/23/16 06:40 11/23/16 07:33 Glucose (Fingerstick) 144mg/dL (70-99) 161mg/dL (70-99) Prothrombin Time 26.0SEC (11.7-14.0) Prothromb Time International Ratio 2.6 (0.8-1.1) Calcium Level 9.9mg/dL (8.5-10.1) Medications Current Medications Aspirin (Ecotrin) 325 mg 1X ONCE PO Last administered on 11/21/16 12:35; Start 11/21/16 at 12:45; Stop 11/21/16 at 12:46; Status DC Ondansetron HCl (Zofran) 4 mg PRN Q8HRS PRN IV NAUSEA/VOMITING; Start 11/21/16 at 13:15; Stop 11/22/16 at 09:43; Status DC Morphine Sulfate 2 mg PRN Q2HR PRN IV PAIN; Start 11/21/16 at 13:15; Stop 11/22 at 13:14; Status DC Warfarin Sodium (Coumadin Per Pharmacy) 1 each PRN DAILY PRN MC SEE COMMENTS Last administered on 11/22/16 14:16; Start 11/21/16 at 15:30 Warfarin Sodium 2.5 mg 2.5 mg DAILY16 PO Last administered on 11/21/16 18:32; Start 11/21/16 at 18:00; Stop 11/22/16 at 14:22; Status DC Dextrose/Sodium Chloride (Iv D5% - 1/2 NS) 1,000 ml @ 75 mls/hr [id number] IV Last administered on 11/22/16 21:49; Start 11/21/16 at 23:00 Ondansetron HCl (Zofran) 4 mg PRN Q6HRS PRN IV NAUSEA/VOMITING; Start 11/22/16 at 09:42 Famotidine (Pepcid) 20 mg BID IVP Last administered on 11/22/16 21:47; Start 11/22/16 at 21:00 Lidocaine (Lidoderm) 1 patch DAILY TD Last administered on 11/22/16 15:31; Start 11/22/16 at 15:00 Albuterol Sulfate (Ventolin Neb Soln) 2.5 mg RTQID NEB Last administered on 20:42; Start 11/22/16 at 16:00 Ketorolac Tromethamine (Toradol) 15 mg PRN Q6HRS PRN IV PAIN; Start 11/22/16 at 14:15; Stop 11/27/16 at 14:14 Warfarin Sodium (Coumadin - No Dose Today) 1 each 1X WARF ONCE MC ; Start 11/22 at 16:00; Stop 11/22/16 at 16:01; Status DC Multi-Ingredient Ointment (Analgesic [place]) 1 raymundo PRN QID PRN TP MUSCLE PAIN; Start 11/22/16 at 17:15 Active Scripts Active Reported Warfarin Sodium 2.5 Mg Tablet 2.5 Mg PO DAILY Protonix (Pantoprazole Sodium) 40 Mg Tablet.dr 40 Mg PO DAILY Propafenone Hcl 150 Mg Tablet 150 Mg PO BID Potassium Chloride 20 Meq Tablet.er 20 Meq PO BID Metformin Hcl Er (Metformin Hcl) 500 Mg Tab.er.24h 500 Mg PO BIDWMEALS Lipitor (Atorvastatin Calcium) 20 Mg Tablet 20 Mg PO HS Lidoderm (Lidocaine) 700 Mg Adh..patch 1 Patch TP DAILY Albuterol Sulfate Neb Soln (Albuterol Sulfate) 2.5 Mg/3 Ml Vial.neb 2.5 Mg NEB PRN Q4HRS PRN Acetaminophen 500 Mg Tablet 1 Tab PO Q8HRS Vitals/I & O Vital Sign - Last 24 Hours 11/22/16 11/22/16 11/22/16 11/22/16 11:00 15:00 16:02 19:30 Temp 97.9 97.8 98.1 97.9 97.8 98.1 Pulse 95 92 91 Resp 20 20 18 B/P 143/91 128/85 145/90 Pulse Ox 95 95 95 94 O2 Delivery Room Air Room Air Room Air Room Air 11/22/16 11/22/16 11/22/16 11/23/16 19:44 20:42 23:30 03:15 Temp 97.9 99.3 97.9 99.3 Pulse 90 84 Resp 18 18 B/P 113/73 112/69 Pulse Ox 94 92 93 O2 Delivery Room Air Room Air Room Air Room Air 11/23/16 07:00 Temp 98.3 98.3 Pulse 86 Resp 18 B/P 155/83 Pulse Ox 94 O2 Delivery Room Air Intake and Output 11/22/16 11/22/16 11/23/16 15:00 23:00 07:00 Intake Total 0 ml 0 ml Balance 0 ml 0 ml KARY GALLARDO MD Nov 23, 2016 09:00
[2016-11-23] MEDS: ALBUTEROL SULFATE 2.5 MG/3 ML NEBU. NEB SCH ×4 (09:05→19:42)
[2016-11-23] MEDS: FAMOTIDINE 20 MG/2 ML VIAL IVP SCH ×2 (09:41→21:52)
[2016-11-23 11:00] VITALS: BP 101/41
--- NOTE | 2016-11-23 12:01 | PDOC ---
PROGRESS NOTES Assessment Problems Medical Problems: (1) Right sided weakness Status: Acute (2) Slurred speech Status: Acute No focal findings now Failure to thrive over the past month with frequent falls, degenerative changes in the lumbar and cervical spines Right frontal meningioma, stable on serial imaging studies over the past month Dementia, negative laboratory studies. I'm afraid this is a late stage of dementia and he is not likely to recover. I doubt that medications such as donepezil will help much. 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 Oriented to person only PERRL. EOMI. CN: no focal findings. Muscle tone: normal. Muscle strength: 3-4/5, no focality DTR: 1+ Plantar reflex:flexor Gait: not examined in bed. Sensory exam: no abnormal findings. No cerebellar signs elicited. Review of Relevant I have reviewed the following items markel (where applicable) has been applied. Labs Laboratory Tests Test 11/21/16 12:17 11/21/16 12:30 11/21/16 12:55 11/21/16 16:30 Glucose (Fingerstick) 166mg/dL (70-99) White Blood Count 8.5x10^3/uL (4.0-11.0) Red Blood Count 4.86x10^6/uL (4.30-5.70) Hemoglobin 14.3g/dL (13.0-17.5) Hematocrit 43.4% (39.0-53.0) Mean Corpuscular Volume 89fL (79-100) Mean Corpuscular Hemoglobin 30pg (25-35) Mean Corpuscular Hemoglobin Concent 33g/dL (31-37) Red Cell Distribution Width 14.6% (11.5-14.5) Platelet Count 577x10^3/uL (140-400) Neutrophils (%) (Auto) 58% (31-73) Lymphocytes (%) (Auto) 30% (24-48) Monocytes (%) (Auto) 9% (0-9) Eosinophils (%) (Auto) 2% (0-3) Basophils (%) (Auto) 1% (0-3) Neutrophils # (Auto) 4.9x10^3uL (1.8-7.7) Lymphocytes # (Auto) 2.6x10^3/uL (1.0-4.8) Monocytes # (Auto) 0.8x10^3/uL (0.0-1.1) Eosinophils # (Auto) 0.1x10^3/uL (0.0-0.7) Basophils # (Auto) 0.1x10^3/uL (0.0-0.2) Prothrombin Time 24.3SEC (11.7-14.0) Prothromb Time International Ratio 2.3 (0.8-1.1) Activated Partial Thromboplast Time 34SEC (24-38) Sodium Level 143mmol/L (136-145) Potassium Level 4.5mmol/L (3.5-5.1) Chloride Level 105mmol/L (98-107) Carbon Dioxide Level 30mmol/L (21-32) Anion Gap 8 (6-14) Blood Urea Nitrogen 19mg/dL (8-26) Creatinine 0.9mg/dL (0.7-1.3) Estimated GFR (Cockcroft-Gault) 80.4 Glucose Level 142mg/dL (70-99) Calcium Level 11.0mg/dL (8.5-10.1) Total Bilirubin 0.4mg/dL (0.2-1.0) Direct Bilirubin 0.2mg/dL (0.0-0.2) Aspartate Amino Transf (AST/SGOT) 18U/L (15-37) Alanine Aminotransferase (ALT/SGPT) 21U/L (16-63) Alkaline Phosphatase 83U/L (46-116) Troponin I Quantitative < 0.017ng/mL (0.000-0.055) Total Protein 7.0g/dL (6.4-8.2) Albumin 3.5g/dL (3.4-5.0) Urine Collection Type Unknown Urine Color Yellow Urine Clarity Clear Urine pH 5.5 Urine Specific [place] 1.025 Urine Protein Negativemg/dL (NEG-TRACE) Urine Glucose (UA) Negativemg/dL (NEG) Urine Ketones (Stick) 15mg/dL (NEG) Urine Blood Negative (NEG) Urine Nitrite Negative (NEG) Urine Bilirubin Small (NEG) Urine Urobilinogen Dipstick 1.0mg/dL (0.2 mg/dL) Urine Leukocyte Esterase Negative (NEG) Urine RBC Occ/HPF (0-2) Urine WBC Occ/HPF (0-4) Urine Bacteria 0/HPF (0-FEW) Urine Hyaline Casts Few/HPF Urine Mucus Marked/LPF Urine Opiates Screen Neg (NEG) Urine Methadone Screen Neg (NEG) Urine Barbiturates Neg (NEG) Urine Phencyclidine Screen Neg (NEG) Urine Amphetamine/Methamphetamine Neg (NEG) Urine Benzodiazepines Screen Neg (NEG) Urine Cocaine Screen Neg (NEG) Urine Cannabinoids Screen Neg (NEG) Urine Ethyl Alcohol Neg (NEG) Nasal Screen MRSA (PCR) Negative (Negative) Test 11/21/16 16:51 11/21/16 20:47 11/22/16 04:30 11/22/16 07:19 Glucose (Fingerstick) 127mg/dL (70-99) 122mg/dL (70-99) 158mg/dL (70-99) White Blood Count 9.1x10^3/uL (4.0-11.0) Red Blood Count 4.62x10^6/uL (4.30-5.70) Hemoglobin 13.6g/dL (13.0-17.5) Hematocrit 40.2% (39.0-53.0) Mean Corpuscular Volume 87fL (79-100) Mean Corpuscular Hemoglobin 29pg (25-35) Mean Corpuscular Hemoglobin Concent 34g/dL (31-37) Red Cell Distribution Width 14.8% (11.5-14.5) Platelet Count 491x10^3/uL (140-400) Neutrophils (%) (Auto) 54% (31-73) Lymphocytes (%) (Auto) 33% (24-48) Monocytes (%) (Auto) 9% (0-9) Eosinophils (%) (Auto) 2% (0-3) Basophils (%) (Auto) 1% (0-3) Neutrophils # (Auto) 5.0x10^3uL (1.8-7.7) Lymphocytes # (Auto) 3.0x10^3/uL (1.0-4.8) Monocytes # (Auto) 0.8x10^3/uL (0.0-1.1) Eosinophils # (Auto) 0.2x10^3/uL (0.0-0.7) Basophils # (Auto) 0.1x10^3/uL (0.0-0.2) Erythrocyte Sedimentation Rate 32 (0-15) Prothrombin Time 24.9SEC (11.7-14.0) Prothromb Time International Ratio 2.4 (0.8-1.1) Sodium Level 140mmol/L (136-145) Potassium Level 3.9mmol/L (3.5-5.1) Chloride Level 106mmol/L (98-107) Carbon Dioxide Level 26mmol/L (21-32) Anion Gap 8 (6-14) Blood Urea Nitrogen 21mg/dL (8-26) Creatinine 0.8mg/dL (0.7-1.3) Estimated GFR (Cockcroft-Gault) 92.1 BUN/Creatinine Ratio 26 (6-20) Glucose Level 158mg/dL (70-99) Calcium Level 10.6mg/dL (8.5-10.1) Total Bilirubin 0.5mg/dL (0.2-1.0) Aspartate Amino Transf (AST/SGOT) 19U/L (15-37) Alanine Aminotransferase (ALT/SGPT) 19U/L (16-63) Alkaline Phosphatase 74U/L (46-116) Total Protein 6.3g/dL (6.4-8.2) Albumin 3.2g/dL (3.4-5.0) Albumin/Globulin Ratio 1.0 (1.0-1.7) Vitamin B12 Level 347pg/mL (247-911) Serum Folate 19.41ng/ml (3.2-20.0) Thyroid Stimulating Hormone (TSH) 1.111uIU/mL (0.358-3.74) Test 11/22/16 17:17 11/23/16 06:40 11/23/16 07:33 Glucose (Fingerstick) 144mg/dL (70-99) 161mg/dL (70-99) Prothrombin Time 26.0SEC (11.7-14.0) Prothromb Time International Ratio 2.6 (0.8-1.1) Calcium Level 9.9mg/dL (8.5-10.1) Laboratory Tests Test 11/22/16 17:17 11/23/16 06:40 11/23/16 07:33 Glucose (Fingerstick) 144mg/dL (70-99) 161mg/dL (70-99) Prothrombin Time 26.0SEC (11.7-14.0) Prothromb Time International Ratio 2.6 (0.8-1.1) Calcium Level 9.9mg/dL (8.5-10.1) Medications Current Medications Aspirin (Ecotrin) 325 mg 1X ONCE PO Last administered on 11/21/16 12:35; Start 11/21/16 at 12:45; Stop 11/21/16 at 12:46; Status DC Ondansetron HCl (Zofran) 4 mg PRN Q8HRS PRN IV NAUSEA/VOMITING; Start 11/21/16 at 13:15; Stop 11/22/16 at 09:43; Status DC Morphine Sulfate 2 mg PRN Q2HR PRN IV PAIN; Start 11/21/16 at 13:15; Stop 11/22 at 13:14; Status DC Warfarin Sodium (Coumadin Per Pharmacy) 1 each PRN DAILY PRN MC SEE COMMENTS Last administered on 11/22/16 14:16; Start 11/21/16 at 15:30 Warfarin Sodium 2.5 mg 2.5 mg DAILY16 PO Last administered on 11/21/16 18:32; Start 11/21/16 at 18:00; Stop 11/22/16 at 14:22; Status DC Dextrose/Sodium Chloride (Iv D5% - 1/2 NS) 1,000 ml @ 75 mls/hr [id number] IV Last administered on 11/22/16 21:49; Start 11/21/16 at 23:00 Ondansetron HCl (Zofran) 4 mg PRN Q6HRS PRN IV NAUSEA/VOMITING; Start 11/22/16 at 09:42 Famotidine (Pepcid) 20 mg BID IVP Last administered on 4/19/17at 09:41; Start 11/22/16 at 21:00 Lidocaine (Lidoderm) 1 patch DAILY TD Last administered on 11/22/16t 15:31; Start 11/22/16 at 15:00 Albuterol Sulfate (Ventolin Neb Soln) 2.5 mg RTQID NEB Last administered on t 09:05; Start 11/22/16 at 16:00 Ketorolac Tromethamine (Toradol) 15 mg PRN Q6HRS PRN IV PAIN; Start 11/22/16 at 14:15; Stop 11/27/16 at 14:14 Warfarin Sodium (Coumadin - No Dose Today) 1 each 1X WARF ONCE MC ; Start 11/22 at 16:00; Stop 11/22/16 at 16:01; Status DC Multi-Ingredient Ointment (Analgesic [place]) 1 raymundo PRN QID PRN TP MUSCLE PAIN; Start 11/22/16 at 17:15 Active Scripts Active Reported Warfarin Sodium 2.5 Mg Tablet 2.5 Mg PO DAILY Protonix (Pantoprazole Sodium) 40 Mg Tablet.dr 40 Mg PO DAILY Propafenone Hcl 150 Mg Tablet 150 Mg PO BID Potassium Chloride 20 Meq Tablet.er 20 Meq PO BID Metformin Hcl Er (Metformin Hcl) 500 Mg Tab.er.24h 500 Mg PO BIDWMEALS Lipitor (Atorvastatin Calcium) 20 Mg Tablet 20 Mg PO HS Lidoderm (Lidocaine) 700 Mg Adh..patch 1 Patch TP DAILY Albuterol Sulfate Neb Soln (Albuterol Sulfate) 2.5 Mg/3 Ml Vial.neb 2.5 Mg NEB PRN Q4HRS PRN Acetaminophen 500 Mg Tablet 1 Tab PO Q8HRS Vitals/I & O Vital Sign - Last 24 Hours 11/22/16 11/22/16 11/22/16 11/22/16 15:00 16:02 19:30 19:44 Temp 97.8 98.1 97.8 98.1 Pulse 92 91 Resp 20 18 B/P 128/85 145/90 Pulse Ox 95 95 94 O2 Delivery Room Air Room Air Room Air Room Air 11/22/16 11/22/16 11/23/16 11/23/16 20:42 23:30 03:15 07:00 Temp 97.9 99.3 98.3 97.9 99.3 98.3 Pulse 90 84 86 Resp 18 18 18 B/P 113/73 112/69 155/83 Pulse Ox 94 92 93 94 O2 Delivery Room Air Room Air Room Air Room Air 11/23/16 11/23/16 09:07 11:00 Temp 97.5 97.5 Pulse 86 Resp 20 B/P 101/41 Pulse Ox 94 95 O2 Delivery Room Air Room Air Intake and Output 11/22/16 11/22/16 11/23/16 15:00 23:00 07:00 Intake Total 0 ml 0 ml Balance 0 ml 0 ml Images Echocardiogram 11/22: LEFT VENTRICLE The left ventricle is normal size. There is normal left ventricular wall thickness. The left ventricular systolic function is normal and the ejection fraction is within normal range. The Ejection Fraction is 60%. There is normal LV segmental wall motion. Transmitral Doppler flow pattern is Grade I-abnormal relaxation pattern. RIGHT VENTRICLE The right ventricle is normal size. The right ventricular systolic function is normal. ATRIA The left atrium is mildly dilated. The right atrium size is normal. The interatrial septum is intact with no evidence for an atrial septal defect or patent foramen ovale as noted on 2-D or Doppler imaging. AORTIC VALVE The aortic valve is calcified but opens well. Doppler and Color Flow revealed no significant aortic regurgitation. There is no significant aortic valvular stenosis. MITRAL VALVE The mitral valve is calcified but opens well. There is no evidence of mitral valve prolapse. There is no mitral valve stenosis. Doppler and Color Flow revealed no mitral valve regurgitation noted. TRICUSPID VALVE The tricuspid valve is normal in structure and function. Doppler and Color Flow revealed physiological tricuspid regurgitation. There is no pulmonary hypertension. The PA pressure was estimated at 21 mmHg. There is no tricuspid valve stenosis. PULMONIC VALVE The pulmonary valve is normal in structure Doppler and Color Flow revealed trace to mild pulmonic valvular regurgitation. There is no pulmonic valvular stenosis. GREAT VESSELS The aortic root is normal in size. The ascending aorta is not well seen. The IVC was not visualized. PERICARDIAL EFFUSION There is no evidence of significant pericardial effusion. Critical Notification Critical Value: No <Conclusion> The left ventricular systolic function is normal and the ejection fraction is within normal range. The Ejection Fraction is 60%. Transmitral Doppler flow pattern is Grade I-abnormal relaxation pattern. The left atrium is mildly dilated. The right atrium size is normal. The aortic valve is calcified but opens well. The mitral valve is calcified but opens well. Doppler and Color Flow revealed physiological tricuspid regurgitation. There is no pulmonary hypertension. The PA pressure was estimated at 21 mmHg. Doppler and Color Flow revealed trace to mild pulmonic valvular regurgitation. There is no evidence of significant pericardial effusion. SHAKA FORTUNE MD Nov 23, 2016 12:01
--- NOTE | 2016-11-23 12:13 | RAD ---
Indication CVA. Noncontrast images of the head were obtained. Comparison is made to a study 2 days previously. No acute calvarial finding is seen. An acute calvarial finding is not seen. The visualized paranasal sinuses appear normal. There is no subdural or epidural hematoma. There is underlying atrophy. An acute finding is not seen and there has not been a significant change in the appearance of the head, on noncontrast imaging, compared to the previous study. IMPRESSION: Chronic changes. No acute finding. No significant change relative to the study 2 days previously PQRS Compliance Statement: One or more of the following individualized dose reduction techniques were utilized for this examination: 1. Automated exposure control 2. Adjustment of the mA and/or kV according to patient size 3. Use of iterative reconstruction technique
[2016-11-23] MEDS: AA 3%/ELECTROLYTE-TPN SOLN/GLY 1,000 ML IV SCH (14:33)
[2016-11-23 15:00] VITALS: BP 160/88
[2016-11-23] MEDS ORDERED: ENOXAPARIN 40 MG/0.4 ML SYRINGE. SQ SCH (15:00)
[2016-11-23 15:29] LABS: PTH INTACT 76 pg/mL (15-65)
[2016-11-23 19:30] VITALS: BP 160/79
[2016-11-23] MEDS: ENOXAPARIN 30 MG/0.3 ML SYRINGE. SQ SCH (21:54)
[2016-11-23 23:13] VITALS: BP 133/84
[2016-11-24] MEDS: AA 3%/ELECTROLYTE-TPN SOLN/GLY 1,000 ML IV SCH ×2 (03:05→14:00)
[2016-11-24 03:44] VITALS: BP 127/88
[2016-11-24 03:51] LABS: INR 2.4 (0.8-1.1); PROTHROMBIN TIME PATIENT 24.6 SEC (11.7-14.0)
[2016-11-24] MEDS: ALBUTEROL SULFATE 2.5 MG/3 ML NEBU. NEB SCH ×4 (06:36→20:25)
[2016-11-24 07:02] VITALS: BP 156/88
--- NOTE | 2016-11-24 08:05 | PDOC ---
ORTHO PROGRESS NOTES Vitals Vital Signs Date Time Temp Pulse Resp B/P Pulse Ox O2 Delivery O2 Flow Rate FiO2 11/24/16 07:02 97.7 92 20 156/88 93 Room Air 97.7 Labs Laboratory Tests Test 11/22/16 10:30 11/22/16 17:17 11/23/16 06:40 11/23/16 07:33 Estimated GFR (Non- 89 (>59) EGFR 103 (>59) PTH (Intact) Specimen Description Comment (.) Parathyroid Hormone (Intact) 76pg/mL (15-65) Calcium (PTH Intact) 10.6mg/dL (8.6-10.2) Creatinine (PTH Intact) 0.65mg/dL (0.76-1.27) Phosphorus (PTH Intact) 3.0mg/dL (2.5-4.5) Glucose (Fingerstick) 144mg/dL (70-99) 161mg/dL (70-99) Prothrombin Time 26.0SEC (11.7-14.0) Prothromb Time International Ratio 2.6 (0.8-1.1) Calcium Level 9.9mg/dL (8.5-10.1) Test 11/23/16 12:35 11/23/16 17:11 11/23/16 21:07 11/24/16 03:17 Glucose (Fingerstick) 142mg/dL (70-99) 136mg/dL (70-99) 133mg/dL (70-99) Prothrombin Time 24.6SEC (11.7-14.0) Prothromb Time International Ratio 2.4 (0.8-1.1) Test 11/24/16 07:05 Glucose (Fingerstick) 133mg/dL (70-99) Laboratory Tests Test 11/23/16 12:35 11/23/16 17:11 11/23/16 21:07 11/24/16 03:17 Glucose (Fingerstick) 142mg/dL (70-99) 136mg/dL (70-99) 133mg/dL (70-99) Prothrombin Time 24.6SEC (11.7-14.0) Prothromb Time International Ratio 2.4 (0.8-1.1) Test 11/24/16 07:05 Glucose (Fingerstick) 133mg/dL (70-99) Assessment and Plan R SWATI MONTANEZ discussed injection with patient, he wasn't sure if he wanted the shot, but speech is difficult to understand f/u MIRIAM Jimenez II, MD Nov 24, 2016 08:05
[2016-11-24] MEDS: LIDOCAINE (700MG/PATCH) PATCH. TD SCH (08:38)
[2016-11-24] MEDS: FAMOTIDINE 20 MG/2 ML VIAL IVP SCH ×2 (08:38→20:47)
[2016-11-24] MEDS: ENOXAPARIN 30 MG/0.3 ML SYRINGE. SQ SCH (08:38)
--- NOTE | 2016-11-24 09:39 | PDOC ---
PROGRESS NOTES Subjective Subjective He denies any significant pain right shoulder. Objective Objective Vital Signs Date Time Temp Pulse Resp B/P Pulse Ox O2 Delivery O2 Flow Rate FiO2 11/24/16 08:44 Room Air 11/24/16 07:02 97.7 92 20 156/88 93 97.7 Intake and Output 11/24/16 06:59 Intake Total 0 ml Balance 0 ml Intake Oral 0 ml # Voids 8 Physical Exam Physical Exam He is awake and talking but some word finding problems persist and he need oral care.He had some stiffness of his shoulders,right more than left. Assessment Assessment Problems Medical Problems: (1) Right sided weakness Status: Acute (2) Slurred speech Status: Acute Plan Plan of Care To continue present physical,occupational therapy and speech pathology follow up as tolerated while waiting for decision about PEG. Comment Review of Relevant I have reviewed the following items markel (where applicable) has been applied. Labs Laboratory Tests Test 11/22/16 10:30 11/22/16 17:17 11/23/16 06:40 11/23/16 07:33 Estimated GFR (Non- 89 (>59) EGFR 103 (>59) PTH (Intact) Specimen Description Comment (.) Parathyroid Hormone (Intact) 76pg/mL (15-65) Calcium (PTH Intact) 10.6mg/dL (8.6-10.2) Creatinine (PTH Intact) 0.65mg/dL (0.76-1.27) Phosphorus (PTH Intact) 3.0mg/dL (2.5-4.5) Glucose (Fingerstick) 144mg/dL (70-99) 161mg/dL (70-99) Prothrombin Time 26.0SEC (11.7-14.0) Prothromb Time International Ratio 2.6 (0.8-1.1) Calcium Level 9.9mg/dL (8.5-10.1) Test 11/23/16 12:35 11/23/16 17:11 11/23/16 21:07 11/24/16 03:17 Glucose (Fingerstick) 142mg/dL (70-99) 136mg/dL (70-99) 133mg/dL (70-99) Prothrombin Time 24.6SEC (11.7-14.0) Prothromb Time International Ratio 2.4 (0.8-1.1) Test 11/24/16 07:05 Glucose (Fingerstick) 133mg/dL (70-99) Laboratory Tests Test 11/23/16 12:35 11/23/16 17:11 11/23/16 21:07 11/24/16 03:17 Glucose (Fingerstick) 142mg/dL (70-99) 136mg/dL (70-99) 133mg/dL (70-99) Prothrombin Time 24.6SEC (11.7-14.0) Prothromb Time International Ratio 2.4 (0.8-1.1) Test 11/24/16 07:05 Glucose (Fingerstick) 133mg/dL (70-99) Medications Current Medications Aspirin (Ecotrin) 325 mg 1X ONCE PO Last administered on 11/21/16 12:35; Start 11/21/16 at 12:45; Stop 11/21/16 at 12:46; Status DC Ondansetron HCl (Zofran) 4 mg PRN Q8HRS PRN IV NAUSEA/VOMITING; Start 11/21/16 at 13:15; Stop 11/22/16 at 09:43; Status DC Morphine Sulfate 2 mg PRN Q2HR PRN IV PAIN; Start 11/21/16 at 13:15; Stop 11/22 at 13:14; Status DC Warfarin Sodium (Coumadin Per Pharmacy) 1 each PRN DAILY PRN MC SEE COMMENTS Last administered on 11/23/16 16:23; Start 11/21/16 at 15:30 Warfarin Sodium 2.5 mg 2.5 mg DAILY16 PO Last administered on 11/21/16 18:32; Start 11/21/16 at 18:00; Stop 11/22/16 at 14:22; Status DC Dextrose/Sodium Chloride (Iv D5% - 1/2 NS) 1,000 ml @ 75 mls/hr [id number] IV Last administered on 11/22/16 21:49; Start 11/21/16 at 23:00; Stop 11/23/16 at 12:08; Status DC Ondansetron HCl (Zofran) 4 mg PRN Q6HRS PRN IV NAUSEA/VOMITING; Start 11/22/16 at 09:42 Famotidine (Pepcid) 20 mg BID IVP Last administered on 11/24/16 08:38; Start 11/22/16 at 21:00 Lidocaine (Lidoderm) 1 patch DAILY TD Last administered on 11/24/16 08:38; Start 11/22/16 at 15:00 Albuterol Sulfate (Ventolin Neb Soln) 2.5 mg RTQID NEB Last administered on 19:42; Start 11/22/16 at 16:00 Ketorolac Tromethamine (Toradol) 15 mg PRN Q6HRS PRN IV PAIN; Start 11/22/16 at 14:15; Stop 11/27/16 at 14:14 Warfarin Sodium (Coumadin - No Dose Today) 1 each 1X WARF ONCE MC ; Start 11/22 at 16:00; Stop 11/22/16 at 16:01; Status DC Multi-Ingredient Ointment 1 raymundo 1 raymundo PRN QID PRN TP MUSCLE PAIN; Start at 17:15 Amino Acids/ Glycerin/ Electrolytes (Procalamine) 1,000 ml @ 80 mls/hr [id number] IV Last administered on 11/24/16 03:05; Start 11/23/16 at 13:00 Enoxaparin Sodium (Lovenox 40mg Syringe) 40 mg Q24H SQ ; Start 11/23/16 at 15:00 ; Status Cancel Enoxaparin Sodium (Lovenox 30mg Syringe) 30 mg Q12HR SQ Last administered on 08:38; Start 11/23/16 at 21:00 Active Scripts Active Reported Warfarin Sodium 2.5 Mg Tablet 2.5 Mg PO DAILY Protonix (Pantoprazole Sodium) 40 Mg Tablet.dr 40 Mg PO DAILY Propafenone Hcl 150 Mg Tablet 150 Mg PO BID Potassium Chloride 20 Meq Tablet.er 20 Meq PO BID Metformin Hcl Er (Metformin Hcl) 500 Mg Tab.er.24h 500 Mg PO BIDWMEALS Lipitor (Atorvastatin Calcium) 20 Mg Tablet 20 Mg PO HS Lidoderm (Lidocaine) 700 Mg Adh..patch 1 Patch TP DAILY Albuterol Sulfate Neb Soln (Albuterol Sulfate) 2.5 Mg/3 Ml Vial.neb 2.5 Mg NEB PRN Q4HRS PRN Acetaminophen 500 Mg Tablet 1 Tab PO Q8HRS Vitals/I & O Vital Sign - Last 24 Hours 11/23/16 11/23/16 11/23/16 11/23/16 11:00 13:09 15:00 16:34 Temp 97.5 97.8 97.5 97.8 Pulse 86 92 Resp 20 20 B/P 101/41 160/88 Pulse Ox 95 93 O2 Delivery Room Air Room Air Room Air Room Air 11/23/16 11/23/16 11/23/16 11/23/16 19:30 19:43 20:00 23:13 Temp 98.1 98.1 98.1 98.1 Pulse 90 89 Resp 18 16 B/P 160/79 133/84 Pulse Ox 94 94 94 O2 Delivery Room Air Room Air Room Air Room Air 11/24/16 11/24/16 11/24/16 03:44 07:02 08:44 Temp 98.4 97.7 98.4 97.7 Pulse 89 92 Resp 16 20 B/P 127/88 156/88 Pulse Ox 92 93 O2 Delivery Room Air Room Air Room Air Intake and Output 11/23/16 11/23/16 11/24/16 14:59 22:59 06:59 Intake Total 0 ml 0 ml Balance 0 ml 0 ml SCOTT DUMONT MD Nov 24, 2016 09:39
--- NOTE | 2016-11-24 10:12 | PDOC ---
PROGRESS NOTES Assessment Problems Medical Problems: (1) Right sided weakness Status: Acute (2) Slurred speech Status: Acute Negative head CT x 2, no sign of acute stroke. No focal findings now Failure to thrive over the past month with frequent falls, degenerative changes in the lumbar and cervical spines Right frontal meningioma, stable on serial imaging studies over the past month Dementia, negative laboratory studies. I'm afraid this is a late stage of dementia and he is not likely to recover. I doubt that medications such as donepezil will help much. 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 This is a progressive dementia, most likely Alzheimer's, with no reversible causes found. We have no major metabolic deficiencies to correct. CT 2 has excluded a new stroke. I believe that the condition is irreversible. She says the patient has often expressed that he does not want a feeding tube. Therefore, she is willing to discuss hospice care. I will consult palliative care and case management. Subjective None Objective Vital Signs Date Time Temp Pulse Resp B/P Pulse Ox O2 Delivery O2 Flow Rate FiO2 11/24/16 08:44 Room Air 11/24/16 07:02 97.7 92 20 156/88 93 97.7 Intake and Output 11/24/16 06:59 Intake Total 0 ml Balance 0 ml Intake Oral 0 ml # Voids 8 PHYSICAL EXAM Alert. Oriented to person only PERRL. EOMI. CN: no focal findings. Muscle tone: normal. Muscle strength: 3-4/5, no focality DTR: 1+ Plantar reflex:flexor Gait: not examined in bed. Sensory exam: no abnormal findings. No cerebellar signs elicited. Review of Relevant I have reviewed the following items markel (where applicable) has been applied. Labs Laboratory Tests Test 11/22/16 10:30 11/22/16 17:17 11/23/16 06:40 11/23/16 07:33 Estimated GFR (Non- 89 (>59) EGFR 103 (>59) PTH (Intact) Specimen Description Comment (.) Parathyroid Hormone (Intact) 76pg/mL (15-65) Calcium (PTH Intact) 10.6mg/dL (8.6-10.2) Creatinine (PTH Intact) 0.65mg/dL (0.76-1.27) Phosphorus (PTH Intact) 3.0mg/dL (2.5-4.5) Glucose (Fingerstick) 144mg/dL (70-99) 161mg/dL (70-99) Prothrombin Time 26.0SEC (11.7-14.0) Prothromb Time International Ratio 2.6 (0.8-1.1) Calcium Level 9.9mg/dL (8.5-10.1) Test 11/23/16 12:35 11/23/16 17:11 11/23/16 21:07 11/24/16 03:17 Glucose (Fingerstick) 142mg/dL (70-99) 136mg/dL (70-99) 133mg/dL (70-99) Prothrombin Time 24.6SEC (11.7-14.0) Prothromb Time International Ratio 2.4 (0.8-1.1) Test 11/24/16 07:05 Glucose (Fingerstick) 133mg/dL (70-99) Laboratory Tests Test 11/23/16 12:35 11/23/16 17:11 11/23/16 21:07 11/24/16 03:17 Glucose (Fingerstick) 142mg/dL (70-99) 136mg/dL (70-99) 133mg/dL (70-99) Prothrombin Time 24.6SEC (11.7-14.0) Prothromb Time International Ratio 2.4 (0.8-1.1) Test 11/24/16 07:05 Glucose (Fingerstick) 133mg/dL (70-99) Medications Current Medications Aspirin (Ecotrin) 325 mg 1X ONCE PO Last administered on 11/21/16t 12:35; Start 11/21/16 at 12:45; Stop 11/21/16 at 12:46; Status DC Ondansetron HCl (Zofran) 4 mg PRN Q8HRS PRN IV NAUSEA/VOMITING; Start 11/21/16 at 13:15; Stop 11/22/16 at 09:43; Status DC Morphine Sulfate 2 mg PRN Q2HR PRN IV PAIN; Start 11/21/16 at 13:15; Stop 11/22 at 13:14; Status DC Warfarin Sodium (Coumadin Per Pharmacy) 1 each PRN DAILY PRN MC SEE COMMENTS Last administered on 11/23/16 16:23; Start 11/21/16 at 15:30 Warfarin Sodium 2.5 mg 2.5 mg DAILY16 PO Last administered on 11/21/16 18:32; Start 11/21/16 at 18:00; Stop 11/22/16 at 14:22; Status DC Dextrose/Sodium Chloride (Iv D5% - 1/2 NS) 1,000 ml @ 75 mls/hr [id number] IV Last administered on 11/22/16 21:49; Start 11/21/16 at 23:00; Stop 11/23/16 at 12:08; Status DC Ondansetron HCl (Zofran) 4 mg PRN Q6HRS PRN IV NAUSEA/VOMITING; Start 11/22/16 at 09:42 Famotidine (Pepcid) 20 mg BID IVP Last administered on 11/24/16 08:38; Start 11/22/16 at 21:00 Lidocaine (Lidoderm) 1 patch DAILY TD Last administered on 11/24/16 08:38; Start 11/22/16 at 15:00 Albuterol Sulfate (Ventolin Neb Soln) 2.5 mg RTQID NEB Last administered on 19:42; Start 11/22/16 at 16:00 Ketorolac Tromethamine (Toradol) 15 mg PRN Q6HRS PRN IV PAIN; Start 11/22/16 at 14:15; Stop 11/27/16 at 14:14 Warfarin Sodium (Coumadin - No Dose Today) 1 each 1X WARF ONCE MC ; Start 11/22 at 16:00; Stop 11/22/16 at 16:01; Status DC Multi-Ingredient Ointment 1 raymundo 1 raymundo PRN QID PRN TP MUSCLE PAIN; Start at 17:15 Amino Acids/ Glycerin/ Electrolytes (Procalamine) 1,000 ml @ 80 mls/hr [id number] IV Last administered on 11/24/16 03:05; Start 11/23/16 at 13:00 Enoxaparin Sodium (Lovenox 40mg Syringe) 40 mg Q24H SQ ; Start 11/23/16 at 15:00 ; Status Cancel Enoxaparin Sodium (Lovenox 30mg Syringe) 30 mg Q12HR SQ Last administered on t 08:38; Start 11/23/16 at 21:00 Active Scripts Active Reported Warfarin Sodium 2.5 Mg Tablet 2.5 Mg PO DAILY Protonix (Pantoprazole Sodium) 40 Mg Tablet.dr 40 Mg PO DAILY Propafenone Hcl 150 Mg Tablet 150 Mg PO BID Potassium Chloride 20 Meq Tablet.er 20 Meq PO BID Metformin Hcl Er (Metformin Hcl) 500 Mg Tab.er.24h 500 Mg PO BIDWMEALS Lipitor (Atorvastatin Calcium) 20 Mg Tablet 20 Mg PO HS Lidoderm (Lidocaine) 700 Mg Adh..patch 1 Patch TP DAILY Albuterol Sulfate Neb Soln (Albuterol Sulfate) 2.5 Mg/3 Ml Vial.neb 2.5 Mg NEB PRN Q4HRS PRN Acetaminophen 500 Mg Tablet 1 Tab PO Q8HRS Vitals/I & O Vital Sign - Last 24 Hours 11/23/16 11/23/16 11/23/16 11/23/16 11:00 13:09 15:00 16:34 Temp 97.5 97.8 97.5 97.8 Pulse 86 92 Resp 20 20 B/P 101/41 160/88 Pulse Ox 95 93 O2 Delivery Room Air Room Air Room Air Room Air 11/23/16 11/23/16 11/23/16 11/23/16 19:30 19:43 20:00 23:13 Temp 98.1 98.1 98.1 98.1 Pulse 90 89 Resp 18 16 B/P 160/79 133/84 Pulse Ox 94 94 94 O2 Delivery Room Air Room Air Room Air Room Air 11/24/16 11/24/16 11/24/16 03:44 07:02 08:44 Temp 98.4 97.7 98.4 97.7 Pulse 89 92 Resp 16 20 B/P 127/88 156/88 Pulse Ox 92 93 O2 Delivery Room Air Room Air Room Air Intake and Output 11/23/16 11/23/16 11/24/16 14:59 22:59 06:59 Intake Total 0 ml 0 ml Balance 0 ml 0 ml Images Indication CVA. Noncontrast images of the head were obtained. Comparison is made to a study 2 days previously. No acute calvarial finding is seen. An acute calvarial finding is not seen. The visualized paranasal sinuses appear normal. There is no subdural or epidural hematoma. There is underlying atrophy. An acute finding is not seen and there has not been a significant change in the appearance of the head, on noncontrast imaging, compared to the previous study. IMPRESSION: Chronic changes. No acute finding. No significant change relative to the study 2 days previously SHAKA FORTUNE MD Nov 24, 2016 10:12
[2016-11-24 10:57] VITALS: BP 110/74
[2016-11-24] MEDS ORDERED: ENOXAPARIN 40 MG/0.4 ML SYRINGE. SQ SCH (12:15)
--- NOTE | 2016-11-24 12:16 | PDOC ---
PROGRESS NOTES Chief Complaint Chief Complaint CVA, possibly small lefty lacunar stroke acute on chronic encephalopathy, vascular dementia 'CVA syndrome, acute encephalopathy weakness and debility R shoulder pain FAll risk SNU resident Neurogenic Dysphagia DNR History of Present Illness History of Present Illness R shoulder xray shows: IMPRESSION: Substantial degenerative changes at the AC joint. 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 BAck to SNU in hospice? Will wait for palliative - re zaria, tpn, ppn or just pleasure feeds Vitals Vitals Vital Signs Date Time Temp Pulse Resp B/P Pulse Ox O2 Delivery O2 Flow Rate FiO2 11/24/16 10:57 97.5 94 22 110/74 95 Room Air 97.5 Physical Exam General: Alert, mild distress, Other Heart: Regular rate, Normal S1, Normal S2 Lungs: Wheezing Abdomen: Normal bowel sounds Extremities: No clubbing, No edema, Normal pulses Labs LABS Laboratory Tests Test 11/23/16 12:35 11/23/16 17:11 11/23/16 21:07 11/24/16 03:17 Glucose (Fingerstick) 142mg/dL (70-99) 136mg/dL (70-99) 133mg/dL (70-99) Prothrombin Time 24.6SEC (11.7-14.0) Prothromb Time International Ratio 2.4 (0.8-1.1) Test 11/24/16 07:05 11/24/16 11:45 Glucose (Fingerstick) 133mg/dL (70-99) 148mg/dL (70-99) Review of Systems Review of Systems dementia Assessment and Plan Assessmemt and Plan Problems Medical Problems: (1) Right sided weakness Status: Acute (2) Slurred speech Status: Acute Problems: Comment Review of Relevant I have reviewed the following items markel (where applicable) has been applied. Labs Laboratory Tests Test 11/22/16 17:17 11/23/16 06:40 11/23/16 07:33 11/23/16 12:35 Glucose (Fingerstick) 144mg/dL (70-99) 161mg/dL (70-99) 142mg/dL (70-99) Prothrombin Time 26.0SEC (11.7-14.0) Prothromb Time International Ratio 2.6 (0.8-1.1) Calcium Level 9.9mg/dL (8.5-10.1) Test 11/23/16 17:11 11/23/16 21:07 11/24/16 03:17 11/24/16 07:05 Glucose (Fingerstick) 136mg/dL (70-99) 133mg/dL (70-99) 133mg/dL (70-99) Prothrombin Time 24.6SEC (11.7-14.0) Prothromb Time International Ratio 2.4 (0.8-1.1) Test 11/24/16 11:45 Glucose (Fingerstick) 148mg/dL (70-99) Laboratory Tests Test 11/23/16 12:35 11/23/16 17:11 11/23/16 21:07 11/24/16 03:17 Glucose (Fingerstick) 142mg/dL (70-99) 136mg/dL (70-99) 133mg/dL (70-99) Prothrombin Time 24.6SEC (11.7-14.0) Prothromb Time International Ratio 2.4 (0.8-1.1) Test 11/24/16 07:05 11/24/16 11:45 Glucose (Fingerstick) 133mg/dL (70-99) 148mg/dL (70-99) Medications Current Medications Aspirin (Ecotrin) 325 mg 1X ONCE PO Last administered on 11/21/16 12:35; Start 11/21/16 at 12:45; Stop 11/21/16 at 12:46; Status DC Ondansetron HCl (Zofran) 4 mg PRN Q8HRS PRN IV NAUSEA/VOMITING; Start 11/21/16 at 13:15; Stop 11/22/16 at 09:43; Status DC Morphine Sulfate 2 mg PRN Q2HR PRN IV PAIN; Start 11/21/16 at 13:15; Stop 11/22 at 13:14; Status DC Warfarin Sodium (Coumadin Per Pharmacy) 1 each PRN DAILY PRN MC SEE COMMENTS Last administered on 11/23/16t 16:23; Start 11/21/16 at 15:30 Warfarin Sodium 2.5 mg 2.5 mg DAILY16 PO Last administered on 11/21/16 18:32; Start 11/21/16 at 18:00; Stop 11/22/16 at 14:22; Status DC Dextrose/Sodium Chloride (Iv D5% - 1/2 NS) 1,000 ml @ 75 mls/hr [id number] IV Last administered on 11/22/16 21:49; Start 11/21/16 at 23:00; Stop 11/23/16 at 12:08; Status DC Ondansetron HCl (Zofran) 4 mg PRN Q6HRS PRN IV NAUSEA/VOMITING; Start 11/22/16 at 09:42 Famotidine (Pepcid) 20 mg BID IVP Last administered on 11/24/16 08:38; Start 11/22/16 at 21:00 Lidocaine (Lidoderm) 1 patch DAILY TD Last administered on 11/24/16 08:38; Start 11/22/16 at 15:00 Albuterol Sulfate (Ventolin Neb Soln) 2.5 mg RTQID NEB Last administered on 19:42; Start 11/22/16 at 16:00 Ketorolac Tromethamine (Toradol) 15 mg PRN Q6HRS PRN IV PAIN; Start 11/22/16 at 14:15; Stop 11/27/16 at 14:14 Warfarin Sodium (Coumadin - No Dose Today) 1 each 1X WARF ONCE MC ; Start 11/22 at 16:00; Stop 11/22/16 at 16:01; Status DC Multi-Ingredient Ointment 1 raymundo 1 raymundo PRN QID PRN TP MUSCLE PAIN; Start at 17:15 Amino Acids/ Glycerin/ Electrolytes (Procalamine) 1,000 ml @ 80 mls/hr [id number] IV Last administered on 11/24/16 03:05; Start 11/23/16 at 13:00 Enoxaparin Sodium (Lovenox 40mg Syringe) 40 mg Q24H SQ ; Start 11/23/16 at 15:00 ; Status Cancel Enoxaparin Sodium (Lovenox 30mg Syringe) 30 mg Q12HR SQ Last administered on 08:38; Start 11/23/16 at 21:00 Active Scripts Active Reported Warfarin Sodium 2.5 Mg Tablet 2.5 Mg PO DAILY Protonix (Pantoprazole Sodium) 40 Mg Tablet.dr 40 Mg PO DAILY Propafenone Hcl 150 Mg Tablet 150 Mg PO BID Potassium Chloride 20 Meq Tablet.er 20 Meq PO BID Metformin Hcl Er (Metformin Hcl) 500 Mg Tab.er.24h 500 Mg PO BIDWMEALS Lipitor (Atorvastatin Calcium) 20 Mg Tablet 20 Mg PO HS Lidoderm (Lidocaine) 700 Mg Adh..patch 1 Patch TP DAILY Albuterol Sulfate Neb Soln (Albuterol Sulfate) 2.5 Mg/3 Ml Vial.neb 2.5 Mg NEB PRN Q4HRS PRN Acetaminophen 500 Mg Tablet 1 Tab PO Q8HRS Vitals/I & O Vital Sign - Last 24 Hours 11/23/16 11/23/16 11/23/16 11/23/16 13:09 15:00 16:34 19:30 Temp 97.8 98.1 97.8 98.1 Pulse 92 90 Resp B/P 160/88 160/79 Pulse Ox 93 94 O2 Delivery Room Air Room Air Room Air Room Air 11/23/16 11/23/16 11/23/16 11/24/16 19:43 20:00 23:13 03:44 Temp 98.1 98.4 98.1 98.4 Pulse 89 89 Resp B/P 133/84 127/88 Pulse Ox 94 94 92 O2 Delivery Room Air Room Air Room Air Room Air 11/24/16 11/24/16 11/24/16 07:02 08:44 10:57 Temp 97.7 97.5 97.7 97.5 Pulse 92 94 Resp B/P 156/88 110/74 Pulse Ox 93 95 O2 Delivery Room Air Room Air Room Air Intake and Output 11/23/16 11/23/16 11/24/16 14:59 22:59 06:59 Intake Total 0 ml 0 ml Balance 0 ml 0 ml KARY GALLARDO MD Nov 24, 2016 12:16
[2016-11-24 14:50] VITALS: BP 130/81
--- NOTE | 2016-11-24 14:58 | PDOC2 ---
PALLIATIVE CARE Palliative Care Note Palliative Care Patient does not respond to verbal stimuli. Diagnosis; Dementia, slurred speech, right sided weakness, FTT. dysphagia. Met with Jewell RUIZ. Jewell and Larry have been together 30+ years. Patient has son El who is aware of pt. illness. 2 daughters Reviewed medical condition. Acknowledges understanding and asked that his Advanced Directive be followed. Reviewed AD. Patient does not want feeding tube. 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 Gracie not a part of his life. Enjoyed fishing and being active. Discussed options for care. Jewell would like to take him home with [facility]. Wants to follow AD. DME: Hospital Bed, oxygen. Home with [facility]. Outside the Hospital DNR/DNI signed. Will need physician signature. Jewell Kimbrough: [phone] Sera GONSALEZ aware and will assist with discharge plan Mao CRANDALL aware of plans. SKY CARPIO Nov 24, 2016 14:58
[2016-11-24 19:52] VITALS: BP 145/85
[2016-11-24 23:10] VITALS: BP 133/71
--- NOTE | 2016-11-25 01:51 | CONS ---
DATE OF CONSULTATION: 11/24/2016 REFERRING PROVIDER: Dr. Diez. CONSULTING PROVIDER: Radhames Gentile MD CHIEF COMPLAINT: Right shoulder pain. HISTORY OF PRESENT ILLNESS: The patient is a very pleasant 86-year-old gentleman with a history of CVA, who resides in a senior care, who was admitted for suspected subsequent stroke event after one week of change with generalized weakness and slurring of speech as well as mental status decline. I was asked to see him as he has been apparently complaining of some right shoulder pain. Due to his difficulty with speech he is difficult to interview and therefore further information from him is tough to obtain. REVIEW OF SYSTEMS: Unable to obtain. PAST MEDICAL HISTORY: AFib, hypertension, hyperlipidemia, history of DVT, low back pain, lumbar surgery, tonsillectomy, herniorrhaphy, cataract extraction, pacemaker implantation, diabetes, COPD. FAMILY HISTORY: Noncontributory. SOCIAL HISTORY: Lives in senior care. No alcohol or tobacco. MEDICATIONS: Reviewed, please see MRAD. ALLERGIES: CARBIDOPA, LEVODOPA, CODEINE, LISINOPRIL. PHYSICAL EXAMINATION: GENERAL: The patient is alert. His speech is difficult to understand. He does follow some simple commands. HEENT: Head normocephalic, atraumatic. Extraocular muscles are intact. CARDIOVASCULAR: Regular rate and rhythm, no edema in his lower extremities. Dorsalis pedis are 1+ and symmetric. LUNGS: Respirations unlabored with symmetric chest rise. ABDOMEN: Soft, nondistended. EXTREMITIES: Examination of bilateral lower extremities reveals no gross deformity at hips, knees, or ankles. No tenderness to palpation. He wiggles his toes. Examination of bilateral upper extremities reveals slightly decreased active range of motion of his right shoulder compared to his left. Difficult to interpret where he is tender. Motor, he is able to wiggle all his fingers. IMAGING: X-rays are reviewed reveal AC degenerative changes in his right shoulder. IMPRESSION: Right acromioclavicular degenerative joint disease. TREATMENT PLAN: I did discuss an injection with this patient and was not able to interpret he was interested in injection. This is something that certainly could be performed for his AC joint if he is sore there. He can follow up with myself on an as needed basis. RADHAMES GENTILE MD DR: OLEG/jackson JOB#: [id number] / [id number]
[2016-11-25 03:28] VITALS: BP 138/84
[2016-11-25] MEDS: AA 3%/ELECTROLYTE-TPN SOLN/GLY 1,000 ML IV SCH (05:06)
[2016-11-25 07:00] VITALS: BP 139/80
[2016-11-25 07:07] LABS: INR 2.2 (0.8-1.1); PROTHROMBIN TIME PATIENT 22.9 SEC (11.7-14.0)
[2016-11-25] MEDS: LIDOCAINE (700MG/PATCH) PATCH. TD SCH (08:02)
[2016-11-25] MEDS: FAMOTIDINE 20 MG/2 ML VIAL IVP SCH (08:02)
[2016-11-25] MEDS: ALBUTEROL SULFATE 2.5 MG/3 ML NEBU. NEB SCH ×2 (09:17→12:26)
--- NOTE | 2016-11-25 10:36 | PDOC3 ---
Discharge Summary Visit Information Date of Admission: Nov 21, 2016 Date of Discharge: Nov 25, 2016 Admitting Diagnosis Comment: CVA, possibly small lefty lacunar stroke acute on chronic encephalopathy, vascular dementia 'CVA syndrome, acute encephalopathy weakness and debility R shoulder pain FAll risk [facility] resident Neurogenic Dysphagia DNR Final Diagnosis Problems Medical Problems: (1) Acute ischemic stroke Status: Acute (2) Right sided weakness Status: Acute (3) Slurred speech Status: Acute Brief Hospital Course Allergies Allergies Coded Allergies Type Severity Reaction Last Updated Verified carbidopa Allergy Intermediate 11/22/16 Yes codeine Allergy Intermediate 11/22/16 Yes levodopa Allergy Intermediate 11/22/16 Yes lisinopril Allergy Intermediate 11/22/16 Yes Vital Signs Vital Signs Date Time Temp Pulse Resp B/P Pulse Ox O2 Delivery O2 Flow Rate FiO2 11/25/16 09:19 98 Room Air 11/25/16 07:00 98.1 85 20 139/80 98.1 Lab Results Laboratory Tests Test 11/23/16 12:35 11/23/16 17:11 11/23/16 21:07 11/24/16 03:17 Glucose (Fingerstick) 142mg/dL (70-99) 136mg/dL (70-99) 133mg/dL (70-99) Prothrombin Time 24.6SEC (11.7-14.0) Prothromb Time International Ratio 2.4 (0.8-1.1) Test 11/24/16 07:05 11/24/16 11:45 11/24/16 17:37 11/25/16 01:19 Glucose (Fingerstick) 133mg/dL (70-99) 148mg/dL (70-99) 139mg/dL (70-99) 128mg/dL (70-99) Test 11/25/16 06:05 11/25/16 06:13 Prothrombin Time 22.9SEC (11.7-14.0) Prothromb Time International Ratio 2.2 (0.8-1.1) Glucose (Fingerstick) 127mg/dL (70-99) Laboratory Tests Test 11/24/16 11:45 11/24/16 17:37 11/25/16 01:19 11/25/16 06:05 Glucose (Fingerstick) 148mg/dL (70-99) 139mg/dL (70-99) 128mg/dL (70-99) Prothrombin Time 22.9SEC (11.7-14.0) Prothromb Time International Ratio 2.2 (0.8-1.1) Test 11/25/16 06:13 Glucose (Fingerstick) 127mg/dL (70-99) Brief Hospital Course Mr. Munroe is a 86 old male admitted for mental status change in FTT sxs. Stroke work up showed small lacunar stroke. Pt almost non verbal, 2 person assist. Palliative consulted, fam opted for home hospice. Jean RN, SW. To stop procalamine, only meds for comfort and pleasure feeding Discharge Information Condition at Discharge: Stable Disposition/Orders: D/C to Home w/ Hospice Scheduled Acetaminophen (Acetaminophen) 1 TAB PO Q8HRS (Reported) Atorvastatin Calcium (Lipitor) 20 MG PO HS (Reported) Lidocaine (Lidoderm) 1 PATCH TP DAILY (Reported) Metformin Hcl (Metformin Hcl Er) 500 MG PO BIDWMEALS (Reported) Pantoprazole Sodium (Protonix) 40 MG PO DAILY (Reported) Potassium Chloride (Potassium Chloride) 20 MEQ PO BID (Reported) Propafenone Hcl (Propafenone Hcl) 150 MG PO BID (Reported) Warfarin Sodium (Warfarin Sodium) 2.5 MG PO DAILY (Reported) Scheduled PRN Albuterol Sulfate (Albuterol Sulfate Neb Soln) 2.5 MG NEB PRN Q4HRS PRN PRN SHORTNESS OF BREATH (Reported) Discontinued Medications Warfarin Sodium (Warfarin Sodium) 0.5 TAB PO DAILY (Reported) KARY GALLARDO MD Nov 25, 2016 10:36
--- NOTE | 2016-11-25 10:57 | PDOC ---
PROGRESS NOTES Assessment Problems Medical Problems: (1) Acute ischemic stroke Status: Acute (2) Right sided weakness Status: Acute (3) Slurred speech Status: Acute Negative head CT x 2, no sign of acute stroke. No focal findings now Failure to thrive over the past month with frequent falls, degenerative changes in the lumbar and cervical spines Right frontal meningioma, stable on serial imaging studies over the past month Dementia, negative laboratory studies. I'm afraid this is a late stage of dementia and he is not likely to recover. I doubt that medications such as donepezil will help much. Note swallow evaluation, neurogenic dysphagia Plan Home with hospice D/C procalamine at discharge Subjective none Objective Vital Signs Date Time Temp Pulse Resp B/P Pulse Ox O2 Delivery O2 Flow Rate FiO2 11/25/16 09:19 98 Room Air 11/25/16 07:00 98.1 85 20 139/80 98.1 Intake and Output 11/25/16 07:00 Intake Total 0 ml Balance 0 ml Intake Oral 0 ml # Voids 9 PHYSICAL EXAM Alert. Oriented to person only PERRL. EOMI. CN: no focal findings. Muscle tone: normal. Muscle strength: 3-4/5, no focality DTR: 1+ Plantar reflex:flexor Gait: not examined in bed. Sensory exam: no abnormal findings. No cerebellar signs elicited. Review of Relevant I have reviewed the following items markel (where applicable) has been applied. Labs Laboratory Tests Test 11/23/16 12:35 11/23/16 17:11 11/23/16 21:07 11/24/16 03:17 Glucose (Fingerstick) 142mg/dL (70-99) 136mg/dL (70-99) 133mg/dL (70-99) Prothrombin Time 24.6SEC (11.7-14.0) Prothromb Time International Ratio 2.4 (0.8-1.1) Test 11/24/16 07:05 11/24/16 11:45 11/24/16 17:37 11/25/16 01:19 Glucose (Fingerstick) 133mg/dL (70-99) 148mg/dL (70-99) 139mg/dL (70-99) 128mg/dL (70-99) Test 11/25/16 06:05 11/25/16 06:13 Prothrombin Time 22.9SEC (11.7-14.0) Prothromb Time International Ratio 2.2 (0.8-1.1) Glucose (Fingerstick) 127mg/dL (70-99) Laboratory Tests Test 11/24/16 11:45 11/24/16 17:37 11/25/16 01:19 11/25/16 06:05 Glucose (Fingerstick) 148mg/dL (70-99) 139mg/dL (70-99) 128mg/dL (70-99) Prothrombin Time 22.9SEC (11.7-14.0) Prothromb Time International Ratio 2.2 (0.8-1.1) Test 11/25/16 06:13 Glucose (Fingerstick) 127mg/dL (70-99) Medications Current Medications Aspirin (Ecotrin) 325 mg 1X ONCE PO Last administered on 11/21/16 12:35; Start 11/21/16 at 12:45; Stop 11/21/16 at 12:46; Status DC Ondansetron HCl (Zofran) 4 mg PRN Q8HRS PRN IV NAUSEA/VOMITING; Start 11/21/16 at 13:15; Stop 11/22/16 at 09:43; Status DC Morphine Sulfate 2 mg PRN Q2HR PRN IV PAIN; Start 11/21/16 at 13:15; Stop 11/22 at 13:14; Status DC Warfarin Sodium (Coumadin Per Pharmacy) 1 each PRN DAILY PRN MC SEE COMMENTS Last administered on 11/23/16 16:23; Start 11/21/16 at 15:30; Stop 11/24/16 at 12:12; Status DC Warfarin Sodium 2.5 mg 2.5 mg DAILY16 PO Last administered on 11/21/16 18:32; Start 11/21/16 at 18:00; Stop 11/22/16 at 14:22; Status DC Dextrose/Sodium Chloride (Iv D5% - 1/2 NS) 1,000 ml @ 75 mls/hr [id number] IV Last administered on 11/22/16 21:49; Start 11/21/16 at 23:00; Stop 11/23/16 at 12:08; Status DC Ondansetron HCl (Zofran) 4 mg PRN Q6HRS PRN IV NAUSEA/VOMITING; Start 11/22/16 at 09:42 Famotidine (Pepcid) 20 mg BID IVP Last administered on 11/25/16 08:02; Start 11/22/16 at 21:00 Lidocaine (Lidoderm) 1 patch DAILY TD Last administered on 11/25/16 08:02; Start 11/22/16 at 15:00 Albuterol Sulfate (Ventolin Neb Soln) 2.5 mg RTQID NEB Last administered on 09:17; Start 11/22/16 at 16:00 Ketorolac Tromethamine (Toradol) 15 mg PRN Q6HRS PRN IV PAIN; Start 11/22/16 at 14:15; Stop 11/27/16 at 14:14 Warfarin Sodium (Coumadin - No Dose Today) 1 each 1X WARF ONCE MC ; Start 11/22 at 16:00; Stop 11/22/16 at 16:01; Status DC Multi-Ingredient Ointment 1 raymundo 1 raymundo PRN QID PRN TP MUSCLE PAIN; Start at 17:15 Amino Acids/ Glycerin/ Electrolytes (Procalamine) 1,000 ml @ 80 mls/hr [id number] IV Last administered on 11/25/16 05:06; Start 11/23/16 at 13:00 Enoxaparin Sodium (Lovenox 40mg Syringe) 40 mg Q24H SQ ; Start 11/23/16 at 15:00 ; Status Cancel Enoxaparin Sodium (Lovenox 30mg Syringe) 30 mg Q12HR SQ Last administered on 08:38; Start 11/23/16 at 21:00; Stop 11/24/16 at 12:26; Status DC Enoxaparin Sodium (Lovenox 40mg Syringe) 40 mg Q24H SQ ; Start 11/24/16 at 12:15 ; Status UNV Active Scripts Active Reported Warfarin Sodium 2.5 Mg Tablet 2.5 Mg PO DAILY Protonix (Pantoprazole Sodium) 40 Mg Tablet.dr 40 Mg PO DAILY Propafenone Hcl 150 Mg Tablet 150 Mg PO BID Potassium Chloride 20 Meq Tablet.er 20 Meq PO BID Metformin Hcl Er (Metformin Hcl) 500 Mg Tab.er.24h 500 Mg PO BIDWMEALS Lipitor (Atorvastatin Calcium) 20 Mg Tablet 20 Mg PO HS Lidoderm (Lidocaine) 700 Mg Adh..patch 1 Patch TP DAILY Albuterol Sulfate Neb Soln (Albuterol Sulfate) 2.5 Mg/3 Ml Vial.neb 2.5 Mg NEB PRN Q4HRS PRN Acetaminophen 500 Mg Tablet 1 Tab PO Q8HRS Vitals/I & O Vital Sign - Last 24 Hours 11/24/16 11/24/16 11/24/16 11/24/16 10:57 13:36 14:50 17:15 Temp 97.5 98.4 97.5 98.4 Pulse 94 94 Resp 22 20 B/P 110/74 130/81 Pulse Ox 95 95 93 99 O2 Delivery Room Air Room Air Room Air Room Air 11/24/16 11/24/16 11/24/16 11/24/16 19:52 20:00 20:28 23:10 Temp 98.4 98.8 98.4 98.8 Pulse 86 86 Resp 20 B/P 145/85 133/71 Pulse Ox 96 99 96 O2 Delivery Room Air Room Air Room Air Room Air 11/25/16 11/25/16 11/25/16 11/25/16 03:28 07:00 08:01 09:19 Temp 99.0 98.1 99.0 98.1 Pulse 94 85 Resp 20 B/P 138/84 139/80 Pulse Ox 94 98 98 O2 Delivery Room Air Room Air Room Air Intake and Output 11/24/16 11/24/16 11/25/16 15:00 23:00 07:00 Intake Total 0 ml 0 ml 0 ml Balance 0 ml 0 ml 0 ml SHAKA FORTUNE MD Nov 25, 2016 10:57
[2016-11-25 11:00] VITALS: BP 118/59
== END 2016-11-25 12:53 | disposition hospice, home (50) | DRG 64 ==
LOC: ER 11:33 → 6 SOUTH 14:08
PROVIDERS: ADMIT Internal Medicine; ATTEND Internal Medicine
DX: I63.9 Cerebral infarction, unspecified (principal); G93.40 Encephalopathy, unspecified; G81.91 Hemiplegia, unspecified affecting right dominant side; I69.951 Hemiplegia and hemiparesis following unspecified cerebrovascular disease affecting right dominant side; F01.50 Vascular dementia, unspecified severity, without behavioral disturbance, psychotic disturbance, mood disturbance, and anxiety; I10 Essential (primary) hypertension; I48.91 Unspecified atrial fibrillation; J44.9 Chronic obstructive pulmonary disease, unspecified; R13.19 Other dysphagia; R62.7 Adult failure to thrive; Z66 Do not resuscitate; M19.011 Primary osteoarthritis, right shoulder; Z51.5 Encounter for palliative care; E78.5 Hyperlipidemia, unspecified; D32.9 Benign neoplasm of meninges, unspecified; E11.9 Type 2 diabetes mellitus without complications; D32.0 Benign neoplasm of cerebral meninges; G89.29 Other chronic pain; R29.6 Repeated falls; M25.512 Pain in left shoulder; M54.5 Low back pain; Z88.5 Allergy status to narcotic agent; Z79.899 Other long term (current) drug therapy; Z82.49 Family history of ischemic heart disease and other diseases of the circulatory system; Z86.711 Personal history of pulmonary embolism; Z86.718 Personal history of other venous thrombosis and embolism; Z86.73 Personal history of transient ischemic attack (TIA), and cerebral infarction without residual deficits; Z91.81 History of falling; Z95.0 Presence of cardiac pacemaker; Z88.8 Allergy status to other drugs, medicaments and biological substances; Z98.49 Cataract extraction status, unspecified eye; Z88.6 Allergy status to analgesic agent
CPT/HCPCS: 36415; 70450; 71010; 73030; 80048; 80053; 80076; 81001; 82310; 82607; 82746; 82947; 83970; 84443; 84484; 85027; 85610; 85651; 85730; 87641; 93005; 93306; 93880; 94640; 94760; G0481; J1650; S0028; 92526; 92610; 97110; 97530; 99285-25